=== PATIENT | female | born 2000 | race Caucasian/White ===

== ENCOUNTER 2021-08-20 13:38 | Inpatient (IN) ==
[2021-08-20] MEDS ORDERED: OXYTOCIN 30 UNITS/500 ML BAG IV PRN ×2 (13:48→17:11)
--- NOTE | 2021-08-20 13:51 | History & Physical Report ---
Date of Service August 20, 2021 Assessment & Plan (1) with 39 completed weeks gestation: (2) ROM (rupture of membranes), premature: Plan: admit with expectant mangement. epidural on demand. Pitocin if indicated. anticipate . Fetus reassuring. Admission and Anticipated Discharge Date Admission Date: August 20, 2021 History of Present Illness Chief Complaint: rom and contractions Primary Care Provider: Gay Benavides Patient is a 21yowf with iup at 39 4/7 weeks . Was in labor and delivery last night for contractions and rectal pressure and not in labor. contractions increased today and noted a pop and green fluid today. Also notes increased contractions. It just continues to leak out of her. Came in wheelchair with towels between legs and nursing notes she is grossly ruptured. labs--O+/ab-/ri/rprnr/hepb-/hiv-/gc/ct-/afp neg/ neg invitae/cf/sma neg/ gbs neg Allergies Allergy/AdvReac Type Severity Reaction Status Date / Time melatonin Allergy itchy, Verified 08/19/21 19:11 hard to breathe, leg swelling Home Medications Medication Instructions Recorded Confirmed Type prenat.vits,harshal,ddx-xcuj-vabii 1 tab PO DAILY 12/28/20 08/19/21 History acetaminophen 500 mg tablet 500 - 1,000 mg PO Q6H PRN 02/19/21 08/19/21 History (Tylenol Extra Strength) ondansetron HCl 4 mg tablet 4 mg PO Q6H PRN #20 tab 05/15/21 08/19/21 Rx (Zofran) Patient History Medical History (Updated 08/20/21 @ 13:55 by Yu Alcala MD, FACOG) Asthma Hx of migraines Pineal gland cyst Surgical History Hx of appendectomy Hx of cholecystectomy Family History Grandfather (Paternal) Cancer Father Heart disease Diabetes Grandmother (Paternal) Lung disease Aunt Kidney disease Mother Diabetes Social History (Updated 05/24/21 @ 16:09 by Nessa Carvalho RN) Smoking Status: Never smoker Hx Alcohol Use: No Hx Substance Use: No Preferred Language: Chinese Communication Ability: Effective Coal Gasification Technician Required: No Beliefs That Will Affect Care: None marital status: marital status details: Sharan (23) [phone] Current Living Situation: Spouse current occupational status: employed current occupation: nurses at at [employer] Feels Safe at Home: Yes Childhood Exposure to Second-Hand Smoke: Yes caffeine: Yes Dental Care, Regularly: No Seatbelt Use: always Sunscreen Use: Yes Do you think of yourself as: straight/heterosexual Sexual Activity: has been sexually active within the last 12 months Gender Identity: Female Assistive Devices: None OB History g1--current FITTER HELPER History noncontributory Physical Exam Constitutional: WD/WN, vitals as above Gastrointestinal (Abdomen): soft, gravid, nt Genitourinary: cx--/-2/mid/soft toco--q3-5min efm--category one Coding Level of Care Code None Diagnoses with 39 completed weeks gestation Z3A.39 ROM (rupture of membranes), premature O42.90
[2021-08-20 14:17] LABS: Hematocrit (blood only) 37.9 % (37-47); Mean Corpuscular Hemoglobin 28.4 pg (25-34); Mean Corpuscular Hgb Conc 34.3 g/dL (32-36); Mean Corpuscular Volume 82.8 fL (80-100); Mean Platelet Volume 11.2 fL (7.4-10.4); Platelet Count 220 K/uL (130-400); RDW Coefficient of Variation 14.2 % (11.5-14.5); Red Blood Count 4.58 M/uL (4.2-5.4); White Blood Count 11.59 K/uL (4.8-10.8)
[2021-08-20] MEDS: LACTATED RINGER'S 1,000 ML IV PRN ×3 (15:19→20:36)
[2021-08-20] MEDS ORDERED: ePHEDrine sulfate 50 MG/ML AMP ONE (16:19)
[2021-08-20] MEDS ORDERED: SODIUM CHLORIDE 0.9% INJ 10 ML VIAL ONE (16:19)
[2021-08-20] MEDS ORDERED: BUPIVACAINE 0.25% 30 ML VIAL ONE (16:19)
[2021-08-20] MEDS ORDERED: fentaNYL citrate 100 MCG/2 ML VIAL ONE (16:20)
[2021-08-20] MEDS ORDERED: fentaNYL 2MCG/ML ROPIVACAINE 1.25MG/ML 100 ML BAG EPI ONE (16:20)
[2021-08-20] MEDS ORDERED: ONDANSETRON INJ 2 MG/ML 2 ML VIAL IV PRN (17:22)
[2021-08-20] MEDS ORDERED: NALOXONE HCL 0.4 MG/1 ML VIAL/CARP IV PRN (17:22)
[2021-08-20] MEDS ORDERED: NALBUPHINE HCL INJ 10 MG/ML AMP IV PRN (17:22)
[2021-08-20] MEDS ORDERED: NALOXONE HCL 1 MG in SODIUM CHLORIDE 0.9% 1000ML 1,000 ML IV PRN (17:22)
[2021-08-20] MEDS ORDERED: fentaNYL 2MCG/ML ROPIVACAINE 1.25MG/ML 100 ML BAG EPI PRN (17:22)
[2021-08-20] MEDS ORDERED: ePHEDrine sulfate 50 MG/ML AMP IV PRN (17:22)
[2021-08-20] MEDS ORDERED: diphenhydrAMINE 50 MG/ML VIAL IV PRN (17:22)
--- NOTE | 2021-08-20 21:50 | Anesthesiology Consultation ---
Date of Service August 20, 2021 This is a late entry Assessment & Plan (1) Encounter for pre-operative examination: History Height/Weight Height: 5 ft 5 in Weight: 99.337 kg Allergies Allergy/AdvReac Type Severity Reaction Status Date / Time melatonin Allergy itchy, Verified 08/19/21 19:11 hard to breathe, leg swelling Medications Home Medications Medication Instructions Recorded Confirmed Last Taken prenat.vits,harshal,gjv-xuux-eyivf 1 tab PO DAILY 12/28/20 08/20/21 08/19/21 08:00 acetaminophen 500 mg tablet 500 - 1,000 mg PO Q6H PRN 02/19/21 08/20/21 08/18/21 08:00 (Tylenol Extra Strength) ondansetron HCl 4 mg tablet 4 mg PO Q6H PRN #20 tab 05/15/21 08/20/21 08/04/21 21:00 (Zofran) diphenhydramine HCl 25 mg capsule 25 mg PO HS PRN 08/20/21 08/20/21 08/19/21 21:00 (Benadryl) Active Medications Generic Name Dose Route Start Last Admin Trade Name Freq PRN Reason Stop Dose Admin Lactated Ringer's 1,000 mls @ 125 mls/hr 08/20/21 13:48 08/20/21 20:36 Lr IV 08/22/21 13:47 125 mls/hr .Q8H PRN Administration L&D Protocol Protocol Oxytocin 30 units in 500 mls @ 5 mls/hr 08/20/21 17:11 08/20/21 21:30 Pitocin IV 08/22/21 17:10 0.42 units/hr .Q24H PRN 7 mls/hr Labor Induction/Augmentation Titration Protocol 0.3 UNITS/HR Past Medical History Medical History (Updated 08/20/21 @ 21:50 by Ro Tapia MD) Asthma Hx of migraines Pineal gland cyst Past Family History Family History Grandfather (Paternal) Cancer Father Heart disease Diabetes Grandmother (Paternal) Lung disease Aunt Kidney disease Mother Diabetes Past Surgical History Surgical History Hx of appendectomy Hx of cholecystectomy Social History Smoking Status: Never smoker Do You Dip or Chew Tobacco: No Hx Alcohol Use: No Hx Substance Use: No substance use type: does not use Physical Exam Vital Signs Last Vital Signs Temp 37.2 C 08/20/21 21:00 Pulse 76 08/20/21 21:38 Resp 18 08/20/21 21:00 BP 123/75 08/20/21 21:33 Pulse Ox 96 08/20/21 21:38 Testing Laboratory Results 08/20/21 14:02
--- NOTE | 2021-08-20 22:43 | Labor Progress Brief Note ---
Date of Service August 20, 2021 Subjective comfortable, now sitting in high fowlers Assessment & Plan (1) ROM (rupture of membranes), premature: (2) with 39 completed weeks gestation: Plan: Will continue current management at this point. contractions are adequate. I have concerns about adequacy of the pelvis and narrow arch. May be having variable because of this or may be a cord somewhere. She is making nice progress. discussed that I am never able to tell if a baby will pass through a pelvis until we try but I wanted to let her know what I was thinking. She asks if we should just do a section now. Discussed would continue current management. Will pull back on pit to 6 as mvus at last check was 335. Fetus overall reassuring with good variability and scalp stim. Admission and Anticipated Discharge Date Admission Date: August 20, 2021 Physical Exam Physical Exam: cx--8/100/-1 toco--q2-3, pit at 8 efm--140s with mod variability, variables with some contractions, improved in the high sitting position. Results & Data ([facility]) Vital Signs (Past 12 Hours) Vital Signs Temp Pulse Pulse Resp BP BP Pulse Ox 08/20/21 22:33 115 H 164/75 H 98 08/20/21 22:28 83 98 08/20/21 22:23 98 H 97 08/20/21 22:18 98 H 130/83 99 08/20/21 22:13 73 96 08/20/21 22:08 76 96 08/20/21 22:03 82 97 08/20/21 22:01 71 127/77 08/20/21 22:00 18 08/20/21 21:58 92 H 98 08/20/21 21:53 88 98 08/20/21 21:48 64 96 08/20/21 21:43 75 96 08/20/21 21:38 76 96 08/20/21 21:33 85 123/75 98 08/20/21 21:30 18 08/20/21 21:28 86 96 08/20/21 21:23 73 96 08/20/21 21:18 70 120/72 96 08/20/21 21:13 89 97 08/20/21 21:08 89 98 08/20/21 21:03 67 96 08/20/21 21:00 37.2 C 18 08/20/21 20:58 74 97 08/20/21 20:53 70 98 08/20/21 20:48 70 112/67 99 08/20/21 20:43 79 99 08/20/21 20:38 89 98 08/20/21 20:33 76 111/59 L 99 08/20/21 20:30 18 08/20/21 20:28 97 H 98 08/20/21 20:23 77 98 08/20/21 20:18 73 108/56 L 98 08/20/21 20:13 71 98 08/20/21 20:08 73 98 08/20/21 20:04 76 131/76 08/20/21 20:03 87 98 08/20/21 20:00 18 08/20/21 19:58 74 96 08/20/21 19:53 71 97 08/20/21 19:48 63 130/67 97 08/20/21 19:43 69 97 08/20/21 19:38 65 96 08/20/21 19:33 68 133/68 98 08/20/21 19:30 18 08/20/21 19:28 74 98 08/20/21 19:23 70 98 08/20/21 19:19 70 130/67 08/20/21 19:18 86 98 08/20/21 19:15 37.4 C 18 08/20/21 19:13 90 98 08/20/21 19:08 78 98 08/20/21 19:06 37.4 C 18 08/20/21 19:03 88 135/73 97 08/20/21 18:58 90 98 08/20/21 18:53 82 98 08/20/21 18:49 74 133/75 08/20/21 18:48 76 98 08/20/21 18:43 86 98 08/20/21 18:38 70 97 08/20/21 18:33 37.6 C H 87 16 139/84 97 08/20/21 18:19 80 97 08/20/21 18:18 81 133/80 08/20/21 18:14 71 95 08/20/21 18:09 72 95 08/20/21 18:04 65 130/70 95 08/20/21 17:59 68 94 08/20/21 17:54 69 95 08/20/21 17:49 86 99 08/20/21 17:48 88 141/94 H 08/20/21 17:44 72 98 08/20/21 17:39 67 96 08/20/21 17:35 68 94 08/20/21 17:34 69 95 08/20/21 17:33 37.5 C 75 16 140/62 08/20/21 17:29 81 97 08/20/21 17:24 88 96 08/20/21 17:19 85 97 08/20/21 17:18 95 H 154/72 H 08/20/21 17:16 90 148/68 H 08/20/21 17:14 96 H 190/90 H 97 08/20/21 17:12 77 130/68 08/20/21 17:10 98 H 130/68 08/20/21 17:09 84 97 08/20/21 17:08 96 H 132/72 08/20/21 17:05 97 H 143/81 H 08/20/21 17:04 98 H 98 08/20/21 17:01 82 129/68 08/20/21 16:59 87 97 08/20/21 16:54 93 H 98 08/20/21 16:49 100 H 98 08/20/21 16:44 86 98 08/20/21 16:39 113 H 98 08/20/21 16:34 70 97 08/20/21 16:33 36.9 C 68 20 124/73 08/20/21 14:45 36.8 C 20 08/20/21 14:04 36.8 C 100 H 20 136/88 Coding Level of Care Code None Diagnoses ROM (rupture of membranes), premature O42.90 with 39 completed weeks gestation Z3A.39
--- NOTE | 2021-08-21 01:30 | Delivery Summary ---
Vaginal Delivery Summary Date of Service August 21, 2021 Vaginal Delivery Summary (see operative note for surgical repair) Pre-operative Diagnosis: at 39 5/7 weeks srom active labor thin meconium Post-operative Diagnosis: same extensive vaginal laceration. Procedure: epidural pitocin augmentation fse/iupc extensive vaginal laceration EBL: 450cc Anesthesia: epidural Procedure: The patient presented to labor and delivery with srom and active labor. She underwent an epidural and then pitocin augmentation. fse and iupc placed to monitor labor. When iupc placed at 6cm, mvus were >200. The fht remained fairly reassuring throughout but the fetus did have periods of variables with contractions. Were able to get through these with position change. The patient did eventually become c/c/+2 station. The heart tones then were in the 90s and I was concerned that the baby would not tolerate pushing. However, fht recovered to 120s and we decided on a trial of pushing. If did not tolerate, planned to move to c/s. Fortunately she pushed very well. The patient pushed for about three contractions to deliver a viable female infant in hunter position. The nose and mouth were bulb suctioned on the perineum and the rest of the infant was then delivered without difficulty. The baby was vigorous. The nose and mouth were again bulb suctioned and the was placed in the maternal abdomen for drying and attention. Cord was clamped and cut at one minute of life. Cord blood and segment obtained. Placenta delivered spontaneous, intact with a three vessel cord. Cervix/sulci/rectum/perineum were intact. Hemostasis obtained with dilute pitocin and fundal massage. Apgars were 8/9. Unfortunately there were extensive vaginal lacerations. I attempted to repair these in the labor room. Her epidural worked very well, but because of lighting and lack of retractors, I was unable to adequately repair. So she will go to the operating room for this repair. I explained this to the patient and fob and she expresses understanding and gives me verbal permission to proceed. There are bilateral sulcal tears, the left almost to the vaginal fornix. The introitus was from the anterior vagina anterior to posterior [facility] Vaginal Delivery Charge Delivery Type Details: (see operative note for surgical repair)
[2021-08-21] MEDS ORDERED: LIDOCAINE 2%/EPINEPHRINE 1:200,000 20 ML SDV ONE (02:44)
[2021-08-21] MEDS ORDERED: ceFAZolin 2000MG 2,000 MG/15 ML SYR IV ONE (02:45)
--- NOTE | 2021-08-21 03:00 | Anesthesiology Consultation ---
Date of Service August 21, 2021 Assessment & Plan Chart Review Chart Review: Acceptable Risk for Surgery Consults Requested none History Surgery Operation Date: 08/21/21 03:00 Proposed Procedures p Vaginal Hysterectomy - Yu Alcala MD, FACOG Height/Weight Height: 5 ft 5 in Weight: 99.337 kg Allergies Allergy/AdvReac Type Severity Reaction Status Date / Time melatonin Allergy itchy, Verified 08/19/21 19:11 hard to breathe, leg swelling Medications Home Medications Medication Instructions Recorded Confirmed Last Taken prenat.vits,harshal,sev-zdzy-okfjc 1 tab PO DAILY 12/28/20 08/20/21 08/19/21 08:00 acetaminophen 500 mg tablet 500 - 1,000 mg PO Q6H PRN 02/19/21 08/20/21 08/18/21 08:00 (Tylenol Extra Strength) ondansetron HCl 4 mg tablet 4 mg PO Q6H PRN #20 tab 05/15/21 08/20/21 08/04/21 21:00 (Zofran) diphenhydramine HCl 25 mg capsule 25 mg PO HS PRN 08/20/21 08/20/21 08/19/21 21:00 (Benadryl) Active Medications Generic Name Dose Route Start Last Admin Trade Name Freq PRN Reason Stop Dose Admin Lactated Ringer's 1,000 mls @ 125 mls/hr 08/20/21 13:48 08/20/21 20:36 Lr IV 08/22/21 13:47 125 mls/hr .Q8H PRN Administration L&D Protocol Protocol Oxytocin 30 units in 500 mls @ 8 mls/hr 08/20/21 17:11 08/21/21 01:20 Pitocin IV 08/22/21 17:10 Infused .Q24H PRN Titration Labor Induction/Augmentation Protocol 0.48 UNITS/HR Ropivacaine 100 ml 08/20/21 17:22 08/21/21 01:21 Fentanyl 2mcg/Ml Ropivacaine 1.25mg/Ml 100 Ml Bag EPI 08/21/21 17:21 10 ml PRN PRN Administration Pain R/T Labor Protocol NPO Date Last Intake of Fluids: 08/21/21 Time Last Intake of Fluids: 12:00 Last Intake of Fluids Comment: Water Date Last Intake of Solids: 08/20/21 Time Last Intake of Solids: 10:00 Past Medical History Medical History (Updated 08/20/21 @ 21:50 by Ro Tapia MD) Asthma Hx of migraines Pineal gland cyst Past Family History Family History Grandfather (Paternal) Cancer Father Heart disease Diabetes Grandmother (Paternal) Lung disease Aunt Kidney disease Mother Diabetes Past Surgical History Surgical History Hx of appendectomy Hx of cholecystectomy Social History Smoking Status: Never smoker Do You Dip or Chew Tobacco: No Hx Alcohol Use: No Hx Substance Use: No substance use type: does not use Physical Exam Vital Signs Last Vital Signs Temp 36.9 C 08/21/21 00:54 Pulse 92 H 08/21/21 02:33 Resp 18 08/21/21 00:30 BP 125/58 L 08/21/21 02:30 Pulse Ox 96 08/21/21 02:33 Testing Laboratory Results 08/20/21 14:02
[2021-08-21] MEDS ORDERED: ePHEDrine sulfate 50 MG/ML AMP IV PRN (03:01)
[2021-08-21] MEDS ORDERED: ONDANSETRON INJ 2 MG/ML 2 ML VIAL IV PRN (03:01)
[2021-08-21] MEDS ORDERED: fentaNYL citrate 100 MCG/2 ML VIAL IV PRN (03:01)
[2021-08-21] MEDS ORDERED: ATROPINE SULFATE 0.1 MG/ML 10ML SYR IV PRN (03:01)
[2021-08-21] MEDS ORDERED: HYDROmorphone INJ 2 MG/ML SYR/VIAL IV PRN (03:01)
[2021-08-21] MEDS ORDERED: oxyCODONE/ACETAMINOPHEN 5mg/325mg TAB PO PRN (03:36)
--- NOTE | 2021-08-21 03:40 | Operative Report ---
PG Post Operative Report Pre & Post Diagnosis Operation Date: 08/21/21 03:00 Pre-Op Diagnosis: Vaginal Lacerations Post-Op Diagnosis: Vaginal Lacerations I identified the patient and participated in the time-out.: Yes Procedure Operation Date: 08/21/21 03:00 Actual Procedures p Repair of left vaginal succul laceration and right Labial Vaginal Laceration( Not Applicable) - Yu Alcala MD, FACOG Surgeon Yu Alcala MD, FACOG Larry Operator Corby Sanchez, nanotechnician Estimated Blood Loss 100 Findings Consistent with Post-Op Diagnosis left sulcal laceration not fully repaired, right labial laceration Fluids 200cc Specimens none Drains none Anesthesia Type L&D Only Epidural Exists Complications none Disposition Accompanied Patient To Recovery: Yes Disposition: L&D Indications 21 yowf s/p vaginal delivery with bilateral sulcal lacerations and separation of the vagina from the perineum. Unable to repair in labor and delivery Description of Procedure see note I attest to the content of the Intraoperative Record and any orders documented therein. Any exceptions are noted below.
--- NOTE | 2021-08-21 03:55 | Anesthesiology Progress Note ---
Date of Service August 21, 2021 Anesthesia Post Procedure Vital Signs Vital Signs: Temp Pulse Pulse Resp BP BP Pulse Ox 08/21/21 03:51 112 H 94 08/21/21 03:50 106 H 118/78 08/21/21 03:49 106 H 98 08/21/21 02:33 92 H 96 08/21/21 02:32 100 H 89 L 08/21/21 02:30 99 H 125/58 L 08/21/21 02:28 90 95 08/21/21 02:23 94 H 95 08/21/21 02:18 99 H 97 08/21/21 02:13 94 H 93 08/21/21 02:08 96 H 97 08/21/21 02:03 103 H 97 08/21/21 02:00 121 H 108/83 08/21/21 01:58 110 H 94 08/21/21 01:53 105 H 97 08/21/21 01:48 110 H 98 08/21/21 01:45 92 H 118/79 08/21/21 01:43 95 H 97 08/21/21 01:38 94 H 97 08/21/21 01:33 96 H 97 08/21/21 01:30 99 H 116/75 08/21/21 01:28 104 H 98 08/21/21 01:23 114 H 98 08/21/21 01:18 110 H 99 08/21/21 01:15 89 122/73 08/21/21 01:13 101 H 97 08/21/21 01:08 87 97 08/21/21 01:03 87 97 08/21/21 01:02 88 118/69 08/21/21 00:58 94 H 96 08/21/21 00:54 36.9 C 08/21/21 00:53 88 97 08/21/21 00:48 116 H 99 08/21/21 00:47 139 H 127/72 08/21/21 00:43 97 H 100 08/21/21 00:38 113 H 97 08/21/21 00:33 98 H 119/67 96 08/21/21 00:30 18 08/21/21 00:28 113 H 96 08/21/21 00:23 94 H 97 08/21/21 00:18 98 H 96 08/21/21 00:17 112 H 107/67 08/21/21 00:13 115 H 97 08/21/21 00:08 85 94 08/21/21 00:03 98 H 113/66 96 08/21/21 00:01 18 08/20/21 23:58 101 H 96 08/20/21 23:53 96 H 96 08/20/21 23:48 99 H 97 08/20/21 23:47 101 H 120/73 08/20/21 23:43 91 H 96 08/20/21 23:38 85 96 08/20/21 23:33 93 H 97 08/20/21 23:32 75 118/64 08/20/21 23:30 18 08/20/21 23:28 97 H 96 08/20/21 23:23 104 H 97 08/20/21 23:20 37.7 C H 08/20/21 23:18 107 H 97 08/20/21 23:17 87 124/70 08/20/21 23:13 110 H 96 08/20/21 23:08 108 H 97 08/20/21 23:03 89 124/65 97 08/20/21 23:00 18 08/20/21 22:58 89 97 08/20/21 22:53 90 97 08/20/21 22:48 104 H 97 08/20/21 22:47 98 H 121/74 08/20/21 22:43 99 H 97 08/20/21 22:38 88 98 08/20/21 22:33 115 H 164/75 H 98 08/20/21 22:30 18 08/20/21 22:28 83 98 08/20/21 22:23 98 H 97 08/20/21 22:18 98 H 130/83 99 08/20/21 22:13 73 96 08/20/21 22:08 76 96 08/20/21 22:03 82 97 08/20/21 22:01 71 127/77 08/20/21 22:00 18 08/20/21 21:58 92 H 98 08/20/21 21:53 88 98 08/20/21 21:48 64 96 08/20/21 21:43 75 96 08/20/21 21:38 76 96 08/20/21 21:33 85 123/75 98 08/20/21 21:30 18 09/26/21 21:28 86 96 08/20/21 21:23 73 96 08/20/21 21:18 70 120/72 96 08/20/21 21:13 89 97 08/20/21 21:08 89 98 08/20/21 21:03 67 96 08/20/21 21:00 37.2 C 18 08/20/21 20:58 74 97 08/20/21 20:53 70 98 08/20/21 20:48 70 112/67 99 08/20/21 20:43 79 99 08/20/21 20:38 89 98 08/20/21 20:33 76 111/59 L 99 08/20/21 20:30 18 08/20/21 20:28 97 H 98 08/20/21 20:23 77 98 08/20/21 20:18 73 108/56 L 98 08/20/21 20:13 71 98 08/20/21 20:08 73 98 08/20/21 20:04 76 131/76 08/20/21 20:03 87 98 08/20/21 20:00 18 08/20/21 19:58 74 96 08/20/21 19:53 71 97 08/20/21 19:48 63 130/67 97 08/20/21 19:43 69 97 08/20/21 19:38 65 96 08/20/21 19:33 68 133/68 98 08/20/21 19:30 18 08/20/21 19:28 74 98 08/20/21 19:23 70 98 08/20/21 19:19 70 130/67 08/20/21 19:18 86 98 08/20/21 19:15 37.4 C 18 08/20/21 19:13 90 98 08/20/21 19:08 78 98 08/20/21 19:06 37.4 C 18 08/20/21 19:03 88 135/73 97 08/20/21 18:58 90 98 08/20/21 18:53 82 98 08/20/21 18:49 74 133/75 08/20/21 18:48 76 98 08/20/21 18:43 86 98 08/20/21 18:38 70 97 08/20/21 18:33 37.6 C H 87 16 139/84 97 08/20/21 18:19 80 97 08/20/21 18:18 81 133/80 08/20/21 18:14 71 95 08/20/21 18:09 72 95 08/20/21 18:04 65 130/70 95 08/20/21 17:59 68 94 08/20/21 17:54 69 95 08/20/21 17:49 86 99 08/20/21 17:48 88 141/94 H 08/20/21 17:44 72 98 08/20/21 17:39 67 96 08/20/21 17:35 68 94 08/20/21 17:34 69 95 08/20/21 17:33 37.5 C 75 16 140/62 08/20/21 17:29 81 97 08/20/21 17:24 88 96 08/20/21 17:19 85 97 08/20/21 17:18 95 H 154/72 H 08/20/21 17:16 90 148/68 H 08/20/21 17:14 96 H 190/90 H 97 08/20/21 17:12 77 130/68 08/20/21 17:10 98 H 130/68 08/20/21 17:09 84 97 08/20/21 17:08 96 H 132/72 08/20/21 17:05 97 H 143/81 H 08/20/21 17:04 98 H 98 08/20/21 17:01 82 129/68 08/20/21 16:59 87 97 08/20/21 16:54 93 H 98 08/20/21 16:49 100 H 98 08/20/21 16:44 86 98 08/20/21 16:39 113 H 98 08/20/21 16:34 70 97 08/20/21 16:33 36.9 C 68 20 124/73 08/20/21 14:45 36.8 C 20 08/20/21 14:04 36.8 C 100 H 20 136/88 Pain Intensity Abdomen: Pain Intensity: 0 Transfer of Care Handoff Completed per policy Notes Mental Status: alert / awake / arousable and participated in evaluation Patient Amnestic to Procedure: Yes Nausea / Vomiting: adequately controlled Pain: adequately controlled Airway Patency, RR, SpO2: stable & adequate BP & HR: stable & adequate Hydration State: stable & adequate Anesthetic Complications: no major complications apparent
[2021-08-21] MEDS: ACETAMINOPHEN 325 MG TAB PO PRN ×2 (04:57→13:56)
[2021-08-21] MEDS ORDERED: BENZOCAINE 20% AER SPR 82.5 GM CAN EXT PRN (06:21)
[2021-08-21] MEDS ORDERED: bisacodyL 5 MG TABEC PO PRN (06:44)
--- NOTE | 2021-08-21 06:50 | Operative Report (OR) ---
PREOPERATIVE DIAGNOSIS: 1. Status post vaginal delivery. 2. Extensive vaginal lacerations and separation of the vagina from the perineal body. POSTOPERATIVE DIAGNOSES: 1. Status post vaginal delivery. 2. Extensive vaginal lacerations and separation of the vagina from the perineal body. PROCEDURE: Exam under anesthesia with repair of left sulcal laceration and right labial laceration. SURGEON: Yu Alcala MD ELECTRICAL SYSTEM SPECIALIST: Adri Montesinos CST ANESTHESIA: Indwelling labor epidural. ESTIMATED BLOOD LOSS: 100 mL. INDICATIONS: Carolyne is a 21-year-old white female who presented to labor and delivery ruptured and in active labor. She progressed in labor with Pitocin augmentation and pushed for approximately four contractions to deliver a viable infant. On evaluation of the perineum and vagina, there were bilateral sulcal tears. There was separation of the posterior vagina from the perineal body and right labial laceration. I was unable to adequately repair these lacerations because of lack of lighting and instruments, so we took her to the OR for this. FINDINGS: Left sulcal laceration that was almost to the vaginal fornix and a right labial laceration. The right sulcal laceration had been appropriately sutured and the posterior vagina had been sutured to the perineal body. COMPLICATIONS: None. DRAINS: None. DISPOSITION: To recovery room in stable condition. DESCRIPTION OF PROCEDURE: The patient was taken to the operating room where she was identified verbally and by bracelet. She was placed in the dorsal supine position in candy cane stirrups. She was prepped and draped in a normal sterile fashion. A timeout was held, identifying correct patient, procedure, positioning, and equipment. She received 1 gram of Ancef preoperatively. A Hogan catheter had been placed previously. I was able to isolate the apex of the left sulcal laceration and this was repaired with 3-0 Vicryl in a running locked fashion to the introitus. The posterior vagina had been sutured appropriately to the perineal body and the right sulcal laceration had been repaired appropriately and was intact. A right labial laceration was identified going almost all the way up to the labia, which was repaired with several interrupted sutures of 4-0 Vicryl. At the end of the procedure, hemostasis was noted to be good. All sponge, lap and needle counts were correct x2. The patient tolerated the procedure well and was taken to recovery room in stable condition. Job ID: [id number] [facility]
[2021-08-21] MEDS: DOCUSATE SODIUM 100 MG CAP PO SCH ×2 (08:54→20:21)
[2021-08-21] MEDS: PRENATAL VITAMIN 1 TAB PO SCH (08:54)
[2021-08-21] MEDS ORDERED: IBUPROFEN 600 MG TAB PO ONE (10:02)
[2021-08-21] MEDS ORDERED: IBUPROFEN 600 MG TAB PO PRN (10:16)
[2021-08-21] MEDS: ceFAZolin 1000MG 1,000 MG/7.5 ML SYR IV SCH ×2 (12:18→20:21)
[2021-08-22] MEDS: ceFAZolin 1000MG 1,000 MG/7.5 ML SYR IV SCH (03:54)
--- NOTE | 2021-08-22 06:42 | Obstetrical Progress Note ---
Date of Service August 22, 2021 Assessment & Plan (1) Encounter for care and examination after delivery: doing well, desires d/c home. instructions reviewed. f/u 6 wk pp check. bottle, rh pos, ri. hgb pending. abx can be d/c'd Day #:: 1 Subjective Ambulation: ambulating normally Voiding: no voiding problems Diet Tolerance:: regular diet Lochia:: Small Feeding Type:: bottle feeding doing well. bottle feeding. denies pain issues. Constitutional: + as per Subjective / HPI Physical Exam Constitutional WD/WN, vitals as above Respiratory normal respiratory effort, lungs clear to auscultation Cardiovascular Rate/Rhythm: regular rate and regular rhythm Gastrointestinal (Abdomen) Percussion/Palpation: abdomen soft; abdomen nontender FF 2 down Musculoskeletal NT calves Neurologic grossly normal Psychiatric A+Ox3, euthymic affect Results & Data ([facility]) Vital Signs (Past 12 Hours) Vital Signs Temp Pulse Resp BP Pulse Ox 08/22/21 04:00 98.1 F 87 18 111/73 98 08/21/21 23:00 98.2 F 78 18 116/78 97 08/21/21 20:15 98.4 F 89 18 112/75 97
[2021-08-22] MEDS: PRENATAL VITAMIN 1 TAB PO SCH (07:55)
[2021-08-22] MEDS: DOCUSATE SODIUM 100 MG CAP PO SCH (07:55)
[2021-08-22 08:06] LABS: Hematocrit (blood only) 30.2 % (37-47); Hemoglobin 9.7 g/dL (12.0-16.0)
--- NOTE | 2021-08-24 10:50 | Discharge Summary (DS) ---
DATE OF ADMISSION: 08/20/2021 DATE OF DISCHARGE: 08/22/2021 ADMIT DIAGNOSES: 1. Intrauterine at 39 and 4/7 weeks. 2. Rupture of membranes. 3. Active labor. DISCHARGE DIAGNOSES: 1. Intrauterine at 39 and 4/7 weeks. 2. Rupture of membranes. 3. Active labor. 4. Status post vaginal delivery. 5. Status post bilateral sulcal lacerations requiring repair in the operating room. PROCEDURES: 1. Normal spontaneous vaginal delivery. 2. Repair of extensive vaginal laceration. 3. FSE and IUPC and Pitocin augmentation. HISTORY OF PRESENT ILLNESS: The patient is a 21-year-old white female, 1, para 0, with an intrauterine at 39 and 4/7 weeks. She was in labor and delivery the night before presentation with contractions and rectal pressure, but was not in labor. Her contractions were increased on the day of admission and she noted a pop and green fluid today. She also noted contractions and the fluid continued to leak out of her. She came into the hospital in a wheelchair with a towel between her legs and nursing notes that she is grossly ruptured. She is 3, 90, -2, mid and soft. She is bianka every 3-5 minutes. The fetus was category 1. For the rest of the patient's detailed history and physical, please see her dictated history and physical. ASSESSMENT: The patient was admitted with expectant management. HOSPITAL COURSE: The patient required Pitocin augmentation. The fetus remained in category 1-2 strip, category 2, was reassuring with good variability but variables. The patient progressed to complete, complete and +2 to 3 station. She did require an FSE and IUPC placement to monitor labor. Her MVUs with IUPC placement were greater than 200. heart tones remained fairly reassuring throughout, but the fetus did have periods of variables with contractions. These were responsive to position change. Once the patient was found to be complete, complete and +2 station, heart tones were found to be in the 90s and I was concerned that the baby would not tolerate pushing; however, we did decide on a trial of pushing and when she did that, she pushed very well and after 3 contractions, was able to deliver a viable female infant in CANDICE presentation. Cervix, sulci, rectum and perineum were intact. Unfortunately, there were bilateral sulcal lacerations, left much deeper almost to the vaginal fornix than the right and the posterior edge of the vaginal wall had anterior- posteriorly from the perineal body. I attempted to repair these in the labor and delivery room as she had an excellent epidural. Unfortunately, because of lack of appropriate lighting and retracting ability, I was unable to satisfactorily repair. Therefore, I consented the patient to move to the operating room, so we could do this with better leg positioning, lighting and retractors. We were able to go to the operating room where I did repair bilateral sulcal lacerations and reapproximated the posterior vaginal wall to the perineal body. Total blood loss for the procedure including the delivery was probably 600 mL and she tolerated that well. This was done under her labor and delivery epidural. The patient's postoperative course was uncomplicated. She tolerated a regular diet, ambulated without difficulty, voided without difficulty and had her pain well controlled. She did receive 24 hours of Ancef because of excessive manipulation of the vagina for repair. Discharge H and H was 9.7 and 30.2. She will return in 6 weeks for postoperative care. Job ID: [id number] [facility]
== END 2021-08-22 13:15 | disposition home or self-care (01) | DRG 807 ==
LOC: 4S2 13:38 → 4S1 16:18 → 4N 08-21 06:15

== ENCOUNTER 2024-06-06 09:39 | Inpatient (IN) ==
--- NOTE | 2024-06-06 10:11 | Emergency Department Note ---
ED Provider Note History of Present Illness Chief Complaint: Vomiting Stated Complaint: FEVER, VOMITING, VOMITING BLOOD, WEAK, KIDNEY PAIN Time Seen by Provider: 06/06/24 09:56 24-year-old female who presents to the emergency department with several complaints, including weakness, fever, vomiting, increased urinary frequency, urgency and blood in her urine. Patient also reports right flank pain as well. Symptoms started about 4 days ago, and have progressively worsened. The patient does report a history of recurrent UTIs during , and is currently 30 weeks gestation. Patient denies history of kidney stones. The patient denies any pain radiating into the left abdomen or chest. She denies any shortness of breath. The patient currently rates her discomfort a 6 out of 10. Home Medications Medication Instructions Recorded Confirmed Type vit no.95-ferrous 1 tab PO DAILY 08/01/23 06/06/24 History fumarate 28 mg-folic acid 800 mcg tablet () nitrofurantoin 100 mg PO BID 7 days #14 caps 06/03/24 06/06/24 Rx monohydrate/macrocrystals 100 mg capsule (Macrobid) acetaminophen 500 mg tablet 500 mg PO Q6H PRN PAIN/FEVER 06/06/24 06/06/24 History Allergies Allergy/AdvReac Type Severity Reaction Status Date / Time melatonin Allergy Hives Verified 06/06/24 12:09 Past Med/Surg History Problem List (Updated 06/06/24 @ 15:10 by Luke Estrada) Acute hyponatremia (Acute) GERD (gastroesophageal reflux disease) Third trimester Sepsis Second trimester (Acute) Pyelonephritis (Acute) Palpitations Encounter for anatomic survey Supervision of normal intrauterine in multigravida Oral contraceptive pill surveillance Seizure disorder Depression Asthma Diarrhea Migraines Medical History depression Pineal gland cyst Hx of migraines Surgical History S/P wisdom tooth extraction Hx of tonsillectomy Hx of cholecystectomy Hx of appendectomy Family History Grandfather (Paternal) Cancer Father Heart disease Diabetes Grandmother (Paternal) Lung disease Aunt Kidney disease Mother Diabetes Social History Smoking Status: Never smoker Second Hand Exposure: No; Do You Dip or Chew Tobacco: No; Hx Alcohol Use: No Hx Substance Use: No Preferred Language: Dominican Communication Ability: Effective Painter Foreman Required: No Beliefs That Will Affect Care: None marital status: marital status details: Sharan (26) [phone] Current Living Situation: Spouse Current Living Situation Comment: Lives with , daughter, no pets current occupational status: employed current occupation: Nurse at [employer] Feels Safe at Home: Yes Safety Concerns: Feels Safe At This Time Childhood Exposure to Second-Hand Smoke: Yes Diet: regular caffeine: Yes Dental Care, Regularly: No Seatbelt Use: always Sunscreen Use: Yes Do you think of yourself as: straight/heterosexual Sexual Activity: has been sexually active within the last 12 months Gender Identity: Female Assistive Devices: None Physical Exam Vital Signs Vital Signs - 24 hr 06/06/24 09:47 06/06/24 11:40 Temperature 37.5 C Temperature Source Oral Pulse Rate 130 H Pulse Rate [Right Finger] 98 H Respiratory Rate 26 H 16 Respiratory Effort / Characteristics Non-Labored Spontaneous Respiratory Depth Normal Blood Pressure 103/70 Blood Pressure [Right Arm] 108/64 Blood Pressure Mean 81 Blood Pressure Mean [Right Arm] 78 Blood Pressure Position Sitting Pulse Oximetry 98 95 Oxygen Delivery Method Room Air Room Air Sepsis Recent Fever Within 48 Hours Yes Sepsis New/Unexplained Change in Mental Status Yes Sepsis Action Taken by Nursing No Action Required CONSTITUTIONAL: Healthy and well nourished. Alert and oriented X 3. GCS 15. Patient appears in moderate discomfort. HEENT: Mucous membranes are dry. No scleral icterus or conjunctival injection. RESPIRATORY: Clear to auscultation bilaterally with no wheezing, crackles, rhonchi or stridor. CARDIOVASCULAR: Regular rate and rhythm with no murmurs, rubs or gallops. GASTROINTESTINAL: Bowel sounds present in all quadrants. Abdomen is soft and nontender to palpation. Fundal height is appropriate for gestational age. Positive right CVA tenderness. No McBurney's point tenderness appreciated. MUSCULOSKELETAL: No tenderness to palpation through the lower back or lumbar paraspinous muscles. INTEGUMENTARY: No rash or other significant dermatologic conditions noted. HEMATOLOGIC: No ecchymosis or petechiae. PSYCHIATRIC: Flat affect. NEUROLOGIC: No focal neurologic deficits noted. Course Course Patient history and physical exam were performed. Nurses notes were reviewed. Vital signs are reviewed, showing a tachycardia and oral temperature of 37.5 C. The patient is not hypotensive or hypoxic. IV access was established, and labs were drawn. The patient was hydrated with a liter normal saline, and administered IV Tylenol and Zofran for pain and nausea. Review of labs shows a moderate leukocytosis with a white count of 14.79 with neutrophilic shift and no bandemia. CMP shows a mild hyponatremia with normal creatinine. Coag studies, LFTs and lipase were normal. Urinalysis is consistent with infection. Retroperitoneal ultrasound does not show evidence for hydronephrosis or other obstructing stone. I did order for Rocephin 2 g IV infusion. Upon reevaluation, the patient reports that she still did not feel well. At this point, the case was discussed with Dr. Zambrano, ED attending physician, who recommended discussing the case further with the hospitalist service for possible admission/observation status. I discussed the case as well with our Sticker [facility], and subsequently discussed the case further with Dr. Salter, [facility] Hospitalist, who will evaluate the patient. Please see his dictation for further treatment and final disposition. Administered Medications Discontinued Medications Sodium Chloride (Nss) 1,000 mls @ 999 mls/hr IV .Q1H1M STA Stop: 06/06/24 11:05 Last Infusion: 06/06/24 11:25 Dose: Infused Documented By: Admin: 06/06/24 10:22 Dose: 999 mls/hr Documented By: PROSPER Acetaminophen (Ofirmev) 1,000 mg in 100 mls @ 400 mls/hr IV NOW STA Stop: 06/06/24 10:19 Last Infusion: 06/06/24 10:54 Dose: Infused Documented By: Admin: 06/06/24 10:22 Dose: 400 mls/hr Documented By: PROSPER Ceftriaxone Sodium (Rocephin) 2,000 mg in 50 mls @ 100 mls/hr IV NOW STA Stop: 06/06/24 11:27 Last Infusion: 06/06/24 11:37 Dose: Infused Documented By: Admin: 06/06/24 11:06 Dose: 100 mls/hr Documented By: PROSPER Lactated Ringer's (Lr) 1,000 mls @ 999 mls/hr IV .Q1H1M ONE Stop: 06/06/24 13:47 Last Infusion: 06/06/24 14:50 Dose: Infused Documented By: Admin: 06/06/24 13:32 Dose: 999 mls/hr Documented By: PROSPER Pantoprazole Sodium 40 mg/ (Syringe) 10 mls @ 5 mls/min IV ONE ONE Stop: 06/06/24 13:31 Last Admin: 06/06/24 13:41 Dose: 5 mls/min Documented By: SHADE Ondansetron HCl (Ondansetron Inj 2 Mg/Ml 2 Ml Vial) 4 mg IV NOW STA Stop: 06/06/24 10:06 Last Admin: 06/06/24 10:22 Dose: 4 mg Documented By: PROSPER Medical Decision Making Medical Records Attestation: I reviewed the patient's medical records. Home Medications was personally reviewed by me Laboratory Data Attestation: I reviewed the patient's lab results. 06/06/24 10:24 06/06/24 10:24 Lab Results 06/06/24 Range/Units 10:24 WBC 14.79 H (4.8-10.8) K/ul RBC 4.08 L (4.20-5.40) M/uL Hgb 11.5 L (12.0-16.0) g/dl Hct 34.1 L (37.0-47.0) % MCV 83.6 (80.0-100.0) fL MCH 28.2 (25.0-34.0) pg MCHC 33.7 (32.0-36.0) g/dL RDW Std Deviation 41.8 (36.4-46.3) fL RDW Coeff of [place] 13.6 (11.5-14.5) % Plt Count 221 (130-400) K/uL MPV 10.4 (9.4-12.4) fL Immature Gran % (Auto) 0.7 % Neut % (Auto) 86.3 % Lymph % (Auto) 5.1 % [place] % (Auto) 7.6 % Eos % (Auto) 0.2 % Baso % (Auto) 0.1 % Neut # (Auto) 12.78 H (1.40-6.50) K/uL Lymph # (Auto) 0.75 L (1.20-3.40) K/uL [place] # (Auto) 1.12 H (0.11-0.59) K/uL Eos # (Auto) 0.03 (0.00-0.50) K/uL Baso # (Auto) 0.01 (0.00-0.20) K/uL Immature Gran # (Auto) 0.10 (0.01-0.20) K/uL PT 10.9 (9.0-12.0) Seconds INR 1.0 (0.9-1.1) Sodium 133 L (136-145) mmol/L Potassium 3.5 (3.5-5.1) mmol/L Chloride 102 (98-107) mmol/L Carbon Dioxide 23 (21-32) mmol/L Anion Gap 8 (3-11) BUN 5 L (6-23) mg/dl Creatinine 0.57 L (0.6-1.2) mg/dl Est Cr Clr Drug Dosing 172.7 ml/min Est GFR ( Amer) 149.3 ml/min Est GFR (Non-Af Amer) 128.8 ml/min BUN/Creatinine Ratio 8.8 L (10-20) Glucose 104 H (70-99(Fasting)) mg/dl Calcium 8.3 L (8.6-10.3) mg/dl Total Bilirubin 0.6 (0.2-1.0) mg/dl AST 11 L (13-39) U/L ALT 8 (7-52) U/L Alkaline Phosphatase 62 (34-104) U/L Total Protein 6.9 (6.0-8.3) gm/dl Albumin 3.4 (3.4-5.0) gm/dl Globulin 3.5 (2.5-4.0) gm/dl Albumin/Globulin Ratio 1.0 (0.9-2) Lipase 50 (11-82) U/L Urine Color Dark Yellow Urine Appearance Turbid A (Clear) Urine pH 6.0 (4.5-7.5) Ur Specific [place] 1.018 (1.000-1.030) Urine Protein 2+ H (Negative) Urine Glucose (UA) Negative (Negative) Urine Ketones 3+ H (Negative) Urine Blood Negative (Negative) Urine Nitrite Negative (Negative) Urine Bilirubin 1+ H (Negative) Urine Urobilinogen Negative (Negative) Ur Leukocyte Esterase 2+ H (Negative) Urine WBC (Auto) >50 H (0-5) /hpf Urine RBC (Auto) 6-10 H (0-2) /hpf U Hyaline Cast (Auto) 6-10 H (0-2) /lpf U Epithel Cells (Auto) >20 H (0-2) /hpf Urine Bacteria (Auto) 3+ H (None Seen) Imaging Data Attestation: I personally reviewed and interpreted this imaging study as follows: My Impression: My interpretation of a retroperitoneal ultrasound does not show any obvious hydronephrosis or obvious renal or ureteral calculi. Radiologist report was also reviewed with concurrence. Radiologist's Impression: Renal Ultrasound 06/06/24 10:05 ULTRASOUND KIDNEYS AND BLADDER CLINICAL HISTORY: Right flank pain. . Urinary tract infection. COMPARISON STUDY: No prior TECHNIQUE: Real-time, grayscale, and color flow sonography of the kidneys and bladder is performed. Images are reviewed in the transverse and longitudinal planes. FINDINGS: Kidneys: The kidneys are normal in size and echotexture. The right kidney measures 12.6 cm in length and the left kidney measures 12.0 cm in length. There is no hydronephrosis. No shadowing renal calculi are identified. There is no sonographic evidence of contour deforming renal mass lesion. No perinephric fluid is identified. Bladder: The bladder is normal in appearance. Bilateral ureteral jets were seen. A single intrauterine gestation is noted in the pelvis. IMPRESSION: Normal sonographic examination of the kidneys and bladder. No hydronephrosis is seen. ACT 112: Negative or not required by law. Electronically signed by: Lg Restrepo M.D. 06/06/2024 11:38 AM MDM Narrative See ED Course section for further details of today's visit. The patient presents the emergency department with multiple complaints concerning for possible right pyelonephritis per history and exam. Urinalysis shows evidence for an infection. Renal ultrasound does not show evidence for hydronephrosis or obvious renal or ureteral calculi. Further review of labs shows a moderate leukocytosis with neutrophilic shift. Patient also is mildly hyponatremic. The remainder of her labs are otherwise normal. The patient still reported not feeling well at the time the patient's workup was completed. At this point, I did discuss the case further with the [facility] Hospitalist service, who will further evaluate the patient for admission/observation. History, examination and laboratory studies are most consistent with acute pyelonephritis. Laboratory studies do not show evidence for acute kidney injury. Laboratory studies also are not suggestive of otitis, cholecystitis or hepatitis. I do not suspect any complication of . Please see hospitalist dictations for further treatment and final disposition. Impression Pyelonephritis, Acute hyponatremia, Second trimester Discharge Plan Visit Data Chief Complaint: Vomiting Stated Complaint: FEVER, VOMITING, VOMITING BLOOD, WEAK, KIDNEY PAIN ED Provider: Pacheco Zambrano ED Midlevel Provider: Luke Estrada Discharge Problem: Pyelonephritis, Acute hyponatremia, Second trimester Patient Disposition: Home - Self-Care Discharge Instructions Interventions: ED Discharge Assessment Last Done: 06/06/24 15:07
[2024-06-06] MEDS: ACETAMINOPHEN 1,000 MG/100 ML VIAL IV STA (10:22)
[2024-06-06] MEDS: SODIUM CHLORIDE 0.9% 1,000 ML IV STA (10:22)
[2024-06-06] MEDS: ONDANSETRON INJ 2 MG/ML 2 ML VIAL IV STA (10:22)
[2024-06-06 10:43] LABS: Basophils # (auto) 0.01 K/uL (0.00-0.20); Basophils % (auto) 0.1 %; Eosinophils # (auto) 0.03 K/uL (0.00-0.50); Eosinophils % (auto) 0.2 %; Hematocrit (blood only) 34.1 % (37.0-47.0); Hemoglobin 11.5 g/dl (12.0-16.0); Immature Granulocytes % (auto) 0.7 %; Lymphocytes # (auto) 0.75 K/uL (1.20-3.40); Lymphocytes % (auto) 5.1 %; Mean Corpuscular Hemoglobin 28.2 pg (25.0-34.0); Mean Corpuscular Hgb Conc 33.7 g/dL (32.0-36.0); Mean Corpuscular Volume 83.6 fL (80.0-100.0); Mean Platelet Volume 10.4 fL (9.4-12.4); Monocytes # (auto) 1.12 K/uL (0.11-0.59); Monocytes % (auto) 7.6 %; Neutrophils # (auto) 12.78 K/uL (1.40-6.50); Neutrophils % (auto) 86.3 %; Platelet Count 221 K/uL (130-400); RDW Coefficient of Variation 13.6 % (11.5-14.5); RDW Standard Deviation 41.8 fL (36.4-46.3); Red Blood Count 4.08 M/uL (4.20-5.40); White Blood Count 14.79 K/ul (4.8-10.8)
[2024-06-06 10:55] LABS: Appearance Urine Turbid (Clear); Bacteria Urine Automated 3+ (None Seen); Bilirubin Urine 1+ (Negative); Blood Urine Negative (Negative); Color Urine Dark Yellow; Epithelial Cell Urine Auto >20 /hpf (0-2); Glucose Urine UA Negative (Negative); Ketones Urine 3+ (Negative); Leukocyte Esterase Urine 2+ (Negative); Nitrite Urine Negative (Negative); Protein Urine 2+ (Negative); Specific Gravity Urine 1.018 (1.000-1.030); Urobilinogen Urine Negative (Negative); WBC Urine Automated >50 /hpf (0-5)
[2024-06-06 11:03] LABS: Albumin Level 3.4 gm/dl (3.4-5.0); BUN Creatinine Ratio 8.8 (10-20); Bilirubin,Total 0.6 mg/dl (0.2-1.0); Calcium 8.3 mg/dl (8.6-10.3); Creatinine Clr Calc Pharmacy 172.7 ml/min; Est GFR (African American) 149.3 ml/min; Est GFR (Non-African American) 128.8 ml/min; Globulin 3.5 gm/dl (2.5-4.0); Potassium 3.5 mmol/L (3.5-5.1); Total Protein 6.9 gm/dl (6.0-8.3)
[2024-06-06] MEDS: cefTRIAXone SODIUM 2,000 MG/50 ML BAG IV STA (11:06)
[2024-06-06 11:09] LABS: Prothrombin Time 10.9 Seconds (9.0-12.0)
--- NOTE | 2024-06-06 11:41 | Ultrasound Report ---
ULTRASOUND KIDNEYS AND BLADDER CLINICAL HISTORY: Right flank pain. . Urinary tract infection. COMPARISON STUDY: No prior TECHNIQUE: Real-time, grayscale, and color flow sonography of the kidneys and bladder is performed. I mages are reviewed in the transverse and longitudinal planes. FINDINGS: Kidneys: The kidneys are normal in size and echotexture. The right kidney measures 12.6 cm in length and the left kidney measures 12.0 cm in length. There is no hydronephrosis. No shadowing renal calcu li are identified. There is no sonographic evidence of contour deforming renal mass lesion. No perine phric fluid is identified. Bladder: The bladder is normal in appearance. Bilateral ureteral jets were seen. A single intrauterine gestation is noted in the pelvis. IMPRESSION: Normal sonographic examination of the kidneys and bladder. No hydronephrosis is seen. ACT 112: Negative or not required by law. Electronically signed by: Lg Restrepo M.D. 06/06/2024 11:38 AM
--- NOTE | 2024-06-06 12:52 | History & Physical Report ---
Date of Service June 06, 2024 Assessment & Plan (1) Pyelonephritis: Plan: Right flank pain on admission, known E. coli UTI from 06/01 resistant only to ampicillin, failed outpatient nitrofurantoin Ceftriaxone 2g IV daily Follow up urine and blood cultures (2) Sepsis: Plan: Ordered blood cultures and lactate Addition LR 1L bolus now (3) Chest pain: Plan: Reassuringly reproducible on exam Acetaminophen PRN Possibly also GERD component (see pantoprazole below) Despite low suspicion of PE given reproducibility and GERD as alternative explanations (4) Third trimester : Plan: Daily NST testing Consult obstetrics (5) GERD (gastroesophageal reflux disease): Plan: Pantoprazole 40mg IV now then PO daily Plan VTE Prophylaxis - SCDs Diet - regular Disposition - admit to med/surg Admission and Anticipated Discharge Date Admission Date: June 06, 2024 History of Present Illness Chief Complaint: Fever, chills Primary Care Provider: NO PCP Carolyne Voss is a 25 year old 29 week female who presents to the ER with generalized weakness, nausea, urinary frequency, urgency, hematuria, right flank pain, chills. Symptoms started 5 days ago and she was diagnosed with a UTI subsequently culture gew E. coli resistant only to ampicillin. She was prescribed and started taking nitrofurantoin on June 03. Despite this her fevers started 2 days ago and she became more nauseous and less able to eat. She notes chest pain, no radiation, severity 2/10, reproducible on palpation just started today. No calf pain. She has been taking tums twice a day through a lot of her due to reflux. Not yet tried famotidine or pantoprazole. Allergies Allergy/AdvReac Type Severity Reaction Status Date / Time melatonin Allergy Hives Verified 06/06/24 12:09 Home Medications Medication Instructions Recorded Confirmed Type vit no.95-ferrous 1 tab PO DAILY 08/01/23 06/06/24 History fumarate 28 mg-folic acid 800 mcg tablet () nitrofurantoin 100 mg PO BID 7 days #14 caps 06/03/24 06/06/24 Rx monohydrate/macrocrystals 100 mg capsule (Macrobid) acetaminophen 500 mg tablet 500 mg PO Q6H PRN PAIN/FEVER 06/06/24 06/06/24 History Past Med/Surg History Problem List (Updated 06/07/24 @ 06:50 by Ant Salter MD) Chest pain Acute hyponatremia (Acute) GERD (gastroesophageal reflux disease) Third trimester Sepsis Second trimester (Acute) Pyelonephritis (Acute) Palpitations Encounter for anatomic survey Supervision of normal intrauterine in multigravida Oral contraceptive pill surveillance Seizure disorder Depression Asthma Diarrhea Migraines Medical History depression Pineal gland cyst Hx of migraines Surgical History S/P wisdom tooth extraction Hx of tonsillectomy Hx of cholecystectomy Hx of appendectomy Family History Grandfather (Paternal) Cancer Father Heart disease Diabetes Grandmother (Paternal) Lung disease Aunt Kidney disease Mother Diabetes Social History Smoking Status: Never smoker Second Hand Exposure: No; Do You Dip or Chew Tobacco: No; Hx Alcohol Use: No Hx Substance Use: No Preferred Language: Maori Communication Ability: Effective Deck Lid Fitter Required: No Beliefs That Will Affect Care: None marital status: marital status details: Sharan (26) [phone] Current Living Situation: Spouse Current Living Situation Comment: Lives with , daughter, no pets current occupational status: 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 Childhood Exposure to Second-Hand Smoke: Yes Diet: regular caffeine: Yes Dental Care, Regularly: No Seatbelt Use: always Sunscreen Use: Yes Do you think of yourself as: straight/heterosexual Sexual Activity: has been sexually active within the last 12 months Gender Identity: Female Assistive Devices: None Review of Systems Review of Systems: All systems reviewed & are unremarkable except as noted in HPI & below Physical Exam Constitutional: WD/WN, vitals as above no acute distress Eyes: + anicteric sclerae; normal pupil size ENMT: Mouth: + dry oral mucous membranes Neck: trachea midline, no thyromegaly Respiratory: normal respiratory effort, lungs clear to auscultation Cardiovascular: Rate/Rhythm: regular rhythm and + tachycardic Heart Sounds: no murmur Extremities: + pedal edema (trace) Chest (Breasts): Additional Comments: Chest pain reproducible on exam Gastrointestinal (Abdomen): normal bowel sounds, soft, nontender, no hepatosplenomegaly Skin: no rashes, warm and dry (no areas of cellulitis) Neurologic: moves all extremities and awake; not confused Psychiatric: A+Ox3, euthymic affect Genitourinary: + CVA tenderness (right) Results & Data Results & Data Vital Signs (Past 12 Hours) Vital Signs Temp Pulse Pulse Resp BP BP Pulse Ox 06/06/24 11:40 98 H 16 108/64 95 06/06/24 09:47 37.5 C 130 H 26 H 103/70 98 O2 Del Method 06/06/24 11:40 Room Air 06/06/24 09:47 Room Air Laboratory Results Abnormal lab results 06/06/24 Range/Units 10:24 WBC 14.79 H (4.8-10.8) K/ul RBC 4.08 L (4.20-5.40) M/uL Hgb 11.5 L (12.0-16.0) g/dl Hct 34.1 L (37.0-47.0) % Neut # (Auto) 12.78 H (1.40-6.50) K/uL Lymph # (Auto) 0.75 L (1.20-3.40) K/uL [place] # (Auto) 1.12 H (0.11-0.59) K/uL Sodium 133 L (136-145) mmol/L BUN 5 L (6-23) mg/dl Creatinine 0.57 L (0.6-1.2) mg/dl BUN/Creatinine Ratio 8.8 L (10-20) Glucose 104 H (70-99(Fasting)) mg/dl Calcium 8.3 L (8.6-10.3) mg/dl AST 11 L (13-39) U/L Urine Appearance Turbid A (Clear) Urine Protein 2+ H (Negative) Urine Ketones 3+ H (Negative) Urine Bilirubin 1+ H (Negative) Ur Leukocyte Esterase 2+ H (Negative) Urine WBC (Auto) >50 H (0-5) /hpf Urine RBC (Auto) 6-10 H (0-2) /hpf U Hyaline Cast (Auto) 6-10 H (0-2) /lpf U Epithel Cells (Auto) >20 H (0-2) /hpf Urine Bacteria (Auto) 3+ H (None Seen) Diagnostic Findings ULTRASOUND KIDNEYS AND BLADDER CLINICAL HISTORY: Right flank pain. . Urinary tract infection. COMPARISON STUDY: No prior TECHNIQUE: Real-time, grayscale, and color flow sonography of the kidneys and bladder is performed. Images are reviewed in the transverse and longitudinal planes. FINDINGS: Kidneys: The kidneys are normal in size and echotexture. The right kidney measures 12.6 cm in length and the left kidney measures 12.0 cm in length. There is no hydronephrosis. No shadowing renal calculi are identified. There is no sonographic evidence of contour deforming renal mass lesion. No perinephric fluid is identified. Bladder: The bladder is normal in appearance. Bilateral ureteral jets were seen. A single intrauterine gestation is noted in the pelvis. IMPRESSION: Normal sonographic examination of the kidneys and bladder. No hydronephrosis is seen. Medications Administered ER Medications Given: NSS 1L bolus Ondansetron 4mg IV Acetaminophen 1000mg IV Ceftriaxone 2000mg IV ECG Rate (beats per minute): 97 Rhythm: normal sinus Findings: + T-wave inversion (Inferior) Comparison ECG Date: from (Jan 01, 2024) Change: the following changes noted (TWI in inferior leads are new) Code Status & VTE Plan Code Status Full VTE Prophylaxis Plan VTE Prophylaxis will be ordered: No PG Care Time/CCT Total # of Minutes Spent Total Time Spent with Patient: Total time spent is greater than 50% in coordination of care (as documented) at patient's floor/unit and/or counseling patient: Coding Level of Care Code 99050 INT INP/OBS CARE 3/75MIN Diagnoses Pyelonephritis N12 Sepsis A41.9 Chest pain R07.9 Third trimester Z34.93 GERD (gastroesophageal reflux disease) K21.9
--- NOTE | 2024-06-06 13:26 | OB/GYN Consultation ---
Date of Consultation June 06, 2024 Assessment & Plan (1) Pyelonephritis: She will be admitted to the medical service and we appreciate their input in her care during this . (2) Supervision of normal intrauterine in multigravida: As far as any other testing needs that needs to be done during her admission, a daily nonstress test should be done which will be carried out by our labor and delivery nurses. If she should experience any increased abdominal cramping pain vaginal bleeding or concerns for movement, we will reassess for the symptoms as well as needed History of Present Illness Reason for Consultation: 28 6/7 weeks gestation with pyelonephritis Requesting Physician: Ant Salter MD Attending Physician: Fior Sommers MD History of Present Illness Patient is a 24-year-old 2 para 1-0-0-1 female EDC of 08/23/2024 who presented to the emergency room this morning with nausea vomiting and a fever of 103 F. She also was experiencing right flank pain. Baby has been active. She denies any abdominal cramping or contractions. She has had no vaginal bleeding or change in vaginal discharge recently. She was seen last on 06/01/2024 for routine OB visit where she had 28-week lab work done as well as a urine culture which is routine at that time of . The urine culture grew out E. coli which was pansensitive. She was having no symptoms of urinary frequency urgency or burning at that time nor does she apparently have any of the symptoms now. She began taking Macrobid approximately 3 days ago. For the last 2 days she has felt warm with general malaise and fatigue accompanied by back pain. She has been taking Tylenol to address these symptoms. However she began to have increasing flank pain and an increase in her temperature which brought her to the emergency room. is also been complicated by acid reflux and she has been taking Tums for this but it has not been effective. She did have vomiting this morning with some flecks of blood present. has also been complicated by obesity and chronic migraine headaches as well as a brain cyst that is being followed by neurology. Allergies Allergy/AdvReac Type Severity Reaction Status Date / Time melatonin Allergy Hives Verified 06/06/24 12:09 Home Medications Medication Instructions Recorded Confirmed Type vit no.95-ferrous 1 tab PO DAILY 08/01/23 06/06/24 History fumarate 28 mg-folic acid 800 mcg tablet () nitrofurantoin 100 mg PO BID 7 days #14 caps 06/03/24 06/06/24 Rx monohydrate/macrocrystals 100 mg capsule (Macrobid) acetaminophen 500 mg tablet 500 mg PO Q6H PRN PAIN/FEVER 06/06/24 06/06/24 History Patient History Medical History depression Pineal gland cyst Hx of migraines Surgical History S/P wisdom tooth extraction Hx of tonsillectomy Hx of cholecystectomy Hx of appendectomy Family History Grandfather (Paternal) Cancer Father Heart disease Diabetes Grandmother (Paternal) Lung disease Aunt Kidney disease Mother Diabetes Social History Smoking Status: Never smoker Second Hand Exposure: No; Do You Dip or Chew Tobacco: No; Hx Alcohol Use: No Hx Substance Use: No Preferred Language: Yoruba Communication Ability: Effective Production Assembly Supervisor Required: No Beliefs That Will Affect Care: None marital status: marital status details: Sharan (26) [phone] Current Living Situation: Spouse and Family Current Living Situation Comment: Lives with , daughter, no pets current occupational status: employed current occupation: Nurse at [employer] Feels Safe at Home: Yes Childhood Exposure to Second-Hand Smoke: Yes Diet: regular caffeine: Yes Dental Care, Regularly: No Seatbelt Use: always Sunscreen Use: Yes Do you think of yourself as: straight/heterosexual Sexual Activity: has been sexually active within the last 12 months Gender Identity: Female Assistive Devices: None Review of Systems Review of Systems: All systems reviewed & are unremarkable except as noted in HPI & below Physical Exam Constitutional: WD/WN, vitals as above Psychiatric: A+Ox3, euthymic affect Genitourinary: OB Exam Abdomen: + fundal height (28 weeks) Fundus: not tender Results & Data Vital Signs (Past 12 Hours) Vital Signs Temp Pulse Pulse Resp BP BP Pulse Ox 06/06/24 11:40 98 H 16 108/64 95 06/06/24 09:47 99.5 F 130 H 26 H 103/70 98 O2 Del Method 06/06/24 11:40 Room Air 06/06/24 09:47 Room Air PG Care Time/CCT Total # of Minutes Spent Total Time Spent with Patient: Total time spent is greater than 50% in coordination of care (as documented) at patient's floor/unit and/or counseling patient: Coding Level of Care Code 98628 IN/OBS CONSULT LVL 2,35M Diagnoses Pyelonephritis N12 Supervision of normal intrauterine in multigravida in third trimester Z34.83 Trimester: third trimester (2) Supervision of normal intrauterine in multigravida Trimester: third trimester Qualified Code(s): Z34.83 - Encounter for supervision of other normal , third trimester
[2024-06-06] MEDS: LACTATED RINGER'S 1,000 ML IV ONE ×2 (13:32→16:40)
[2024-06-06] MEDS: PANTOprazole 40 MG in SYRINGE 0 ML IV ONE (13:41)
[2024-06-06] MEDS: ACETAMINOPHEN 325 MG TAB PO PRN (16:51)
[2024-06-06] MEDS ORDERED: PROMETHAZINE HCL 12.5 MG/10 ML UDP PO PRN (17:14)
[2024-06-06] MEDS: PYRIDOXINE HCL 50 MG TAB PO PRN (17:20)
[2024-06-06] MEDS: LACTATED RINGER'S 1,000 ML IV SCH (17:51)
[2024-06-07 07:51] LABS: Basophils # (auto) 0.02 K/uL (0.00-0.20); Basophils % (auto) 0.3 %; Eosinophils # (auto) 0.06 K/uL (0.00-0.50); Eosinophils % (auto) 0.9 %; Hematocrit (blood only) 27.3 % (37.0-47.0); Immature Granulocytes # (auto) 0.06 K/uL (0.01-0.20); Immature Granulocytes % (auto) 0.9 %; Lymphocytes # (auto) 0.87 K/uL (1.20-3.40); Lymphocytes % (auto) 12.7 %; Mean Corpuscular Hemoglobin 28.2 pg (25.0-34.0); Mean Corpuscular Volume 85.6 fL (80.0-100.0); Mean Platelet Volume 10.5 fL (9.4-12.4); Monocytes % (auto) 8.7 %; Neutrophils # (auto) 5.26 K/uL (1.40-6.50); Neutrophils % (auto) 76.5 %; Platelet Count 175 K/uL (130-400); RDW Coefficient of Variation 13.7 % (11.5-14.5); RDW Standard Deviation 43.3 fL (36.4-46.3); Red Blood Count 3.19 M/uL (4.20-5.40); White Blood Count 6.87 K/ul (4.8-10.8)
[2024-06-07] MEDS: PANTOprazole 40 MG TAB PO SCH (07:52)
[2024-06-07 08:05] LABS: Anion Gap 6 (3-11); BUN Creatinine Ratio 8.5 (10-20); Blood Urea Nitrogen 4 mg/dl (6-23); Calcium 7.4 mg/dl (8.6-10.3); Carbon Dioxide 23 mmol/L (21-32); Chloride 106 mmol/L (98-107); Creatinine Clr Calc Pharmacy 216.2 ml/min; Est GFR (African American) > 150.0 ml/min; Est GFR (Non-African American) 137.3 ml/min; Glucose 90 mg/dl (70-99(Fasting)); Potassium 3.2 mmol/L (3.5-5.1); Sodium 135 mmol/L (136-145)
--- NOTE | 2024-06-07 08:37 | Obstetrical Progress Note ---
Date of Service June 07, 2024 Assessment & Plan (1) Third trimester : Plan: we will continue to follow along with medicine-we appreciate your care would recommend knee high SCD's if she is going not going to be ambulating on a regular basis (2) Pyelonephritis: Admission and Anticipated Discharge Date Admission Date: June 06, 2024 Subjective continues to have right flank pain. just had episode of sweating as fever resolved. baby continues to be active. no abdominal cramping, vaginal bleeding or change in discharge noted. yesterday's NST was reassuring. Review of Systems Review of Systems: All systems reviewed & are unremarkable except as noted in HPI & below Physical Exam Constitutional: WD/WN, vitals as above Musculoskeletal: (+) right CVAT Psychiatric: A+Ox3, euthymic affect Results & Data Vital Signs (Past 12 Hours) Vital Signs Temp Pulse Resp BP Pulse Ox O2 Del Method 06/07/24 07:15 97.9 F 89 16 97/67 L 95 Room Air 06/07/24 03:50 99.1 F PG Care Time/CCT Total # of Minutes Spent Total Time Spent with Patient: Total time spent is greater than 50% in coordination of care (as documented) at patient's floor/unit and/or counseling patient: Coding Level of Care Code 51523 SUB INP/OBS CARE 1/25MIN Diagnoses Third trimester Z34.93 Pyelonephritis N12
[2024-06-07] MEDS ORDERED: NON-FORMULARY MEDICATION (Pnv Cmb#95-Ferrous Fumarate-Fa [Prenatal] 28 mg iron- 800 mcg Ta PO SCH (09:00)
--- NOTE | 2024-06-07 11:01 | Hospitalist Progress Note ---
Date of Service June 07, 2024 Assessment & Plan (1) Pyelonephritis: Plan: Patient presents to the hospital on account of Right flank pain, known E. coli UTI from 06/01 resistant only to ampicillin, failed outpatient nitrofurantoin Ceftriaxone 2g IV daily Follow up urine and blood cultures, Negative so far Clinically patient feels a whole lot better (2) Sepsis: Plan: Resolving following antibiotics and IV fluids (3) Chest pain: Plan: Reassuringly reproducible on exam Acetaminophen PRN Possibly also GERD component (see pantoprazole below) Despite low suspicion of PE given reproducibility and GERD as alternative explanations (4) Third trimester : Plan: Daily NST testing Consult obstetrics, Appreciate commendations (5) GERD (gastroesophageal reflux disease): Plan: Pantoprazole 40mg IV now then PO daily Plan VTE Prophylaxis - SCDs Diet - regular Disposition - Continue to monitor in the hospital Admission and Anticipated Discharge Date Admission Date: June 06, 2024 Subjective Patient seen and examined, complained of fevers or chills overnight, Scheduled to have another stress test for the baby Review of Systems Review of Systems: All systems reviewed are negative, apart from the ones contained in the history. Physical Exam Physical Exam: The patient is awake, alert and oriented 3, well developed and well nourished, normocephalic and atraumatic, lying in bed and in no acute distress. HEENT--PERRL, EOMI, mucous membranes and oropharynx mildly dry Neck--supple. No JVD. No bruits. Thyroid normal, trachea midline, no adenopathy. Heart--normal S1 and S2. No murmurs, rubs or gallops. Lungs--clear bilaterally, no respiratory distress, no accessory muscle use. Abdomen--normal bowel sounds and soft. abdomen Extremities--no cyanosis or clubbing. No edema. Dermatologic--normal skin turgor, normal color, no abnormal lymph nodes, no rash. Neurologic--cranial nerves II through XII grossly intact. Rheumatologic--normal range of motion. Psychiatric--normal affect. Results & Data Results & Data Vital Signs (Past 12 Hours) Vital Signs Temp Pulse Resp BP Pulse Ox O2 Del Method 06/07/24 07:15 97.9 F 89 16 97/67 L 95 Room Air 06/07/24 03:50 99.1 F PG Care Time/CCT Total # of Minutes Spent Total Time Spent with Patient: Total time spent is greater than 50% in coordination of care (as documented) at patient's floor/unit and/or counseling patient: Coding Level of Care Code 09718 SUB INP/OBS CARE 2/35MIN Diagnoses Pyelonephritis N12 Sepsis A41.9 Chest pain R07.9 Third trimester Z34.93 GERD (gastroesophageal reflux disease) K21.9 Time Spent (min) 35
[2024-06-07] MEDS: cefTRIAXone SODIUM 2,000 MG/50 ML BAG IV SCH (11:03)
--- NOTE | 2024-06-07 12:26 | Ultrasound Report ---
US OB BPP w NST single CLINICAL HISTORY: indeterminate baseline COMPARISON STUDY: Obstetrical ultrasound 05/04/2024. FINDINGS: heart rate is 134 BPM. The fetus is in a breech presentation. movement, tone, a nd breathing was identified during the examination. Amniotic fluid index is approximately 18 cm. Ther efore, the biophysical profile score is 8 out of 8. The ultrasound age is approximately 32 weeks and 5 days +/- 2 weeks and 2 days. A anatomic survey was not performed. IMPRESSION: 1. A single viable 32 week and 5 day intrauterine gestation. 2. Biophysical profile score is 8 out of 8. ACT 112: Negative or not required by law. Electronically signed by: Talon Plaza M.D. 06/07/2024 12:25 PM
--- NOTE | 2024-06-07 12:45 | Electrocardiogram Report ---
Test Reason : Blood Pressure : / mmHG Vent. Rate : 097 BPM Atrial Rate : 097 BPM P-R Int : 164 ms QRS Dur : 080 ms QT Int : 354 ms P-R-T Axes : 013 011 002 degrees QTc Int : 449 ms Normal sinus rhythm Normal ECG When compared with ECG of 01-JAN-2024 00:19, Inverted T waves have replaced nonspecific T wave abnormality in Inferior leads Confirmed by Vishal Khalil ([id number]) on 06/07/2024 12:44:47 PM Referred By: REFERRED SELF Confirmed By:Vishal Khalil
[2024-06-07] MEDS: LACTATED RINGER'S 1,000 ML IV SCH (17:45)
[2024-06-07] MEDS: POTASSIUM CHLORIDE CRTAB 20 MEQ TABCR PO STA (18:07)
[2024-06-07] MEDS: LACTATED RINGER'S 500 ML IV ONE (19:12)
[2024-06-07] MEDS ORDERED: Nursing to Pharmacy Communication SCH (20:45)
[2024-06-08 06:40] LABS: Hematocrit (blood only) 25.8 % (37.0-47.0); Hemoglobin 8.5 g/dl (12.0-16.0); Mean Corpuscular Hemoglobin 28.3 pg (25.0-34.0); Mean Corpuscular Hgb Conc 32.9 g/dL (32.0-36.0); Mean Platelet Volume 10.4 fL (9.4-12.4); Platelet Count 175 K/uL (130-400); RDW Coefficient of Variation 13.8 % (11.5-14.5); RDW Standard Deviation 43.5 fL (36.4-46.3); White Blood Count 5.19 K/ul (4.8-10.8)
[2024-06-08 07:08] LABS: Anion Gap 4 (3-11); BUN Creatinine Ratio 8.5 (10-20); Blood Urea Nitrogen 4 mg/dl (6-23); Calcium 7.6 mg/dl (8.6-10.3); Carbon Dioxide 26 mmol/L (21-32); Chloride 107 mmol/L (98-107); Creatinine Clr Calc Pharmacy 216.2 ml/min; Est GFR (African American) > 150.0 ml/min; Est GFR (Non-African American) 137.3 ml/min; Glucose 82 mg/dl (70-99(Fasting)); Potassium 3.7 mmol/L (3.5-5.1); Sodium 137 mmol/L (136-145)
--- NOTE | 2024-06-08 08:39 | Obstetrical Progress Note ---
Date of Service June 08, 2024 Assessment & Plan (1) Third trimester : Plan: CVAT has resolved, she has been afebrile for over 24 hours. Hgb has dropped to 8.5 - most likely because she was hemoconcentrated and dehydrated prior to admission. she admits that her fluid intake has not been adequate for several weeks. there is a hemodilution factor at this point in but erring on side of caution, will do one dose iron infusion today prior to discharge pending medicine's approval for discharge she is agreeable to the iron infusion and will then do daily iron supplement po going forward. will recheck H&H in 4 weeks. she had a significant bleed from a sulcal tear last so any help in getting to a normal H&H will be helpful. also we will let po antibiotic choice for after discharge up to medicine's recs. Admission and Anticipated Discharge Date Admission Date: June 06, 2024 Subjective feeling much better- was able to sleep all night. CVAT has resolved. voiding larger amounts of urine that is now much less concentrated after fluid bolus yesterday. baby active. Review of Systems Review of Systems: All systems reviewed & are unremarkable except as noted in HPI & below Physical Exam Constitutional: WD/WN, vitals as above Musculoskeletal: no CVAT bilaterally Psychiatric: A+Ox3, euthymic affect Genitourinary: fundus nontender Results & Data Vital Signs (Past 12 Hours) Vital Signs Temp Pulse Pulse Resp BP BP Pulse Ox 06/08/24 07:15 97.7 F 88 18 98/57 L 97 06/08/24 02:28 97.8 F 90 18 94/66 L 99 06/07/24 22:00 98.2 F 78 18 119/70 98 06/07/24 20:59 88 99/54 L O2 Del Method 06/08/24 07:15 Room Air 06/08/24 02:28 Room Air 06/07/24 22:00 Room Air 06/07/24 20:59 PG Care Time/CCT Total # of Minutes Spent Total Time Spent with Patient: Total time spent is greater than 50% in coordination of care (as documented) at patient's floor/unit and/or counseling patient: Coding Level of Care Code 18809 SUB INP/OBS CARE 2/35MIN Diagnoses Third trimester Z34.93
[2024-06-08] MEDS: IRON SUCROSE 300 MG in SODIUM CHLORIDE 0.9% 250 ML IV ONE (09:34)
--- NOTE | 2024-06-08 11:21 | Hospitalist Progress Note ---
Date of Service June 08, 2024 Assessment & Plan (1) Pyelonephritis: Plan: Patient presents to the hospital on account of Right flank pain, known E. coli UTI from 06/01 resistant only to ampicillin, failed outpatient nitrofurantoin Ceftriaxone 2g IV daily Follow up urine and blood cultures, Negative so far Clinically patient feels a whole lot better Will discharge on a short course of p.o. cephalexin (2) Sepsis: Plan: Resolving following antibiotics and IV fluids (3) Chest pain: Plan: Reassuringly reproducible on exam Acetaminophen PRN Possibly also GERD component (see pantoprazole below) Despite low suspicion of PE given reproducibility and GERD as alternative explanations (4) Third trimester : Plan: Daily NST testing Consult obstetrics, Appreciate commendations (5) GERD (gastroesophageal reflux disease): Plan: Pantoprazole 40mg IV now then PO daily Plan VTE Prophylaxis - SCDs Diet - regular Disposition - Continue to monitor in the hospital, Hopefully discharge in next 24 hours Admission and Anticipated Discharge Date Admission Date: June 06, 2024 Subjective Patient seen and examined this morning, feels overall better, flank pain has resolved also slept better and tolerating diet. Feels the kick of her baby Review of Systems Review of Systems: All systems reviewed are negative, apart from the ones contained in the history. Physical Exam Physical Exam: The patient is awake, alert and oriented 3, well developed and well nourished, normocephalic and atraumatic, lying in bed and in no acute distress. HEENT--PERRL, EOMI, mucous membranes and oropharynx mildly dry Neck--supple. No JVD. No bruits. Thyroid normal, trachea midline, no adenopathy. Heart--normal S1 and S2. No murmurs, rubs or gallops. Lungs--clear bilaterally, no respiratory distress, no accessory muscle use. Abdomen--normal bowel sounds and soft. abdomen Extremities--no cyanosis or clubbing. No edema. Dermatologic--normal skin turgor, normal color, no abnormal lymph nodes, no rash. Neurologic--cranial nerves II through XII grossly intact. Rheumatologic--normal range of motion. Psychiatric--normal affect. Results & Data Results & Data Vital Signs (Past 12 Hours) Vital Signs Temp Pulse Resp BP Pulse Ox O2 Del Method 06/08/24 11:03 97.9 F 94 H 16 100/74 99 Room Air 06/08/24 07:15 97.7 F 88 18 98/57 L 97 Room Air 06/08/24 02:28 97.8 F 90 18 94/66 L 99 Room Air PG Care Time/CCT Total # of Minutes Spent Total Time Spent with Patient: Total time spent is greater than 50% in coordination of care (as documented) at patient's floor/unit and/or counseling patient: Coding Level of Care Code 98502 SUB INP/OBS CARE 2/35MIN Diagnoses Pyelonephritis N12 Sepsis A41.9 Chest pain R07.9 Third trimester Z34.93 GERD (gastroesophageal reflux disease) K21.9 Time Spent (min) 35
--- NOTE | 2024-06-08 13:53 | Discharge Summary ---
Date of Service June 08, 2024 Admission HPI Per Admitting Provider Carolyne Voss is a 25 year old 29 week female who presents to the ER with generalized weakness, nausea, urinary frequency, urgency, hematuria, right flank pain, chills. Symptoms started 5 days ago and she was diagnosed with a UTI subsequently culture gew E. coli resistant only to ampicillin. She was prescribed and started taking nitrofurantoin on June 03. Despite this her fevers started 2 days ago and she became more nauseous and less able to eat. She notes chest pain, no radiation, severity 2/10, reproducible on palpation just started today. No calf pain. She has been taking tums twice a day through a lot of her due to reflux. Not yet tried famotidine or pantoprazole. Principal Diagnosis pyelonephritis Discharge Exam The patient is awake, alert and oriented 3, well developed and well nourished, normocephalic and atraumatic, lying in bed and in no acute distress. HEENT--PERRL, EOMI, mucous membranes and oropharynx mildly dry Neck--supple. No JVD. No bruits. Thyroid normal, trachea midline, no adenopathy. Heart--normal S1 and S2. No murmurs, rubs or gallops. Lungs--clear bilaterally, no respiratory distress, no accessory muscle use. Abdomen--normal bowel sounds and soft. abdomen Extremities--no cyanosis or clubbing. No edema. Dermatologic--normal skin turgor, normal color, no abnormal lymph nodes, no rash. Neurologic--cranial nerves II through XII grossly intact. Rheumatologic--normal range of motion. Psychiatric--normal affect. Discharge Data Allergies Allergy/AdvReac Type Severity Reaction Status Date / Time melatonin Allergy Hives Verified 06/06/24 12:09 Consultations 06/06/24 12:39 ED Decision to Admit Stat 06/06/24 12:52 Consult Obstetrics Routine Ordered Studies 06/06/24 10:05 US Renal Bladder [US renal/blad retro comp] Stat 06/07/24 10:54 US OB BPP w NST single Stat Hospital Course (1) Pyelonephritis: Patient presents to the hospital on account of Right flank pain, known E. coli UTI from 06/01 resistant only to ampicillin, failed outpatient nitrofurantoin Ceftriaxone 2g IV daily Follow up urine and blood cultures, Negative so far Clinically patient feels a whole lot better Will discharge on a short course of p.o. cephalexin (2) Sepsis: Resolving following antibiotics and IV fluids (3) Chest pain: Reassuringly reproducible on exam Acetaminophen PRN Possibly also GERD component (see pantoprazole below) Despite low suspicion of PE given reproducibility and GERD as alternative explanations (4) Third trimester : Daily NST testing Consult obstetrics, Appreciate commendations (5) GERD (gastroesophageal reflux disease): Pantoprazole 40mg IV now then PO daily Plan VTE Prophylaxis - SCDs Diet - regular Disposition - Continue to monitor in the hospital, Hopefully discharge in next 24 hours Total Time Total Time Spent Total Time Spent (In Minutes): 35 Discharge Plan Discharge Items Patient Disposition: Home - Self-Care Reason For Visit: SEPSIS, UTI Discharge Diagnosis: pyelonephritis Activity: Resume your previous activity Non-emergency contact: Primary Care Provider and Test Fixture Designer Call non-emergency contact if: you have any medication questions Follow-up/Referrals: PCP,NO [Primary Care Provider] - Diet: Regular Addtl Attending Provider Instructions: please follow up with your Obgyn as soon as possible Pending Studies at Discharge: No Stand-Alone Forms: My [employer], Work/School Release, Smoking Cessation Medications and DC Order Prescriptions: New cephalexin 500 mg capsule 500 mg PO BID 5 Days Qty: 10 0RF Continued PNV cmb#95-ferrous fumarate-FA [] 28 mg iron- 800 mcg Tablet 1 tab PO DAILY acetaminophen 500 mg Tablet 500 mg PO Q6H PRN (Reason: PAIN/FEVER) Discontinued nitrofurantoin monohyd/m-cryst [Macrobid] 100 mg capsule 100 mg PO BID 7 Days Qty: 14 0RF Rx Instructions: must administer with a meal/food. Start Date 06/03/24 x7 day supply Discharge Orders: Discharge Order (Routine); Ordered 06/08/24 Ordered By: Evaristo Guerra Admission Data Admit Date/Time: 06/06/24 12:42 Attending Provider: Evaristo Guerra Admit Provider: Ant Salter Primary Care Provider: PCP,NO Other Providers: Ant Salter; Fior Sommers Coding Level of Care Code 76422 INP/OBS DISCH >30 MIN Diagnoses Pyelonephritis N12 Sepsis A41.9 Chest pain R07.9 Third trimester Z34.93 GERD (gastroesophageal reflux disease) K21.9 Time Spent (min) 35
== END 2024-06-08 14:45 | disposition home or self-care (01) | DRG 831 ==
LOC: ED 09:39 → 3W 12:42 → SUATTDRO 12:42 → 3W 15:07 → 4S1 06-07 17:19 → 4E1 06-07 21:59

== ENCOUNTER 2024-08-17 14:15 | Inpatient (IN) ==
--- NOTE | 2024-08-18 11:39 | History & Physical Report ---
Date of Service August 18, 2024 Assessment & Plan (1) Encounter for induction of labor: Plan: 24 years +1 at 39 w 2d POG planned for El IOL today. No active complains Maternal Vitlas: Stable FHT Category 1. Cervix: Dilated 1 cm; Effacement : 50%; Station -1 Plan: IOL as per protocol Admission and Anticipated Discharge Date Admission Date: August 18, 2024 History of Present Illness Chief Complaint: Came for IOL today. Primary Care Provider: NO PCP Patient is a 24 yo female +1 currently at 39 2/7 WGA with an RAMOS 08/03/2024 as determined by US who is here for elective induction. H/O Pyelonephritis, Seizure disorder, Depression, Asthma, Migraines. Denies contractions; movement present; fluid loss; bloody show. External FHT and external uterine monitors used; category 1 tracing; normal FHT variability Had regular appointments with OB. H/O migraines and brain cyst(found on MRI)--sees Neuro, -MRI from 08/14--small pineal cyst (not concerning per neuro), mild cerebellar tonsillar ectopia Labs: Blood type:O+ve Antibody screen: _ve Hgb: 11.9 gm% GBS: Neg USG ( 06/29) efw= 48%/ ac= 31% Breech presentation P1: with extensive 2nd degree laceration upto fornices, 3 years. Allergies Allergy/AdvReac Type Severity Reaction Status Date / Time melatonin Allergy Hives Verified 08/18/24 12:14 Home Medications Medication Instructions Recorded Confirmed Type vit no.95-ferrous 1 tab PO DAILY 08/01/23 08/18/24 History fumarate 28 mg-folic acid 800 mcg tablet () acetaminophen 500 mg tablet 500 mg PO Q6H PRN PAIN/FEVER 06/06/24 08/18/24 History ferrous sulfate 325 mg (65 mg 325 mg PO DAILY 06/15/24 08/18/24 History iron) tablet (Feosol) albuterol sulfate 90 mcg/actuation 2 puff inhalation Q12H PRN asthma 08/18/24 08/18/24 History aerosol inhaler (Proventil HFA) calcium carbonate 500 mg PO DAILY PRN Heartburn 08/18/24 08/18/24 History Patient History Medical History depression Pineal gland cyst Hx of migraines Surgical History S/P wisdom tooth extraction Hx of tonsillectomy Hx of cholecystectomy Hx of appendectomy Family History Grandfather (Paternal) Cancer Father Heart disease Diabetes Grandmother (Paternal) Lung disease Aunt Kidney disease Mother Diabetes Social History Smoking Status: Never smoker Second Hand Exposure: No; Do You Dip or Chew Tobacco: No; Hx Alcohol Use: No Hx Substance Use: No Preferred Language: Italian Communication Ability: Effective Associate Professor Of Criminal Justice Required: No Beliefs That Will Affect Care: None marital status: marital status details: Sharan (26) [phone] Current Living Situation: Spouse Current Living Situation Comment: Lives with , daughter, no pets current occupational status: employed current occupation: Nurse at [employer] Feels Safe at Home: Yes Safety Concerns: Feels Safe At This Time Childhood Exposure to Second-Hand Smoke: Yes Diet: regular caffeine: Yes Dental Care, Regularly: No Seatbelt Use: always Sunscreen Use: Yes Do you think of yourself as: straight/heterosexual Sexual Activity: has been sexually active within the last 12 months Gender Identity: Female Assistive Devices: None Review of Systems Denies fever, chills, sweats. Denies SOB, difficulty breathing, chest pain, palpitations, and chest pressure. Denies breast pain. Denies dysuria. Denies headache or changes in vision. Physical Exam Physical Exam: General: Alert and oriented. No acute distress CV: Regular rate and rhythm. No murmurs. Respiratory: CTA bilaterally. No rhonchi, wheezes, or crackles. No increased work of breathing. Abdomen: Gravid; Soft, nontender upon palpation Pelvic: Dilated 1 cm; Effacement : 50%; Station -[address] Echevarria Lower extremities: No LE edema. No deep calf pain. Walt's negative bilaterally. Supervising Physician Co-Signing Physician Notes Resident Physician Supervision Note: I interviewed and examined the patient. Discussed with Dr. Varma and agree with findings and plan as documented in the note. Any exceptions or clarifications are listed here: 24 yo at 39 2/7 wga presents for eIOL. +FM; denies ctx, LOF, VB. PNI: hx migraines/brain cyst - no concerns from neuro, bmi > 35. SVE /-2, post/med. EFW 7-8. Fetus cat 1, irreg ctx. 35cc dodd placed after consent obtained, tolerated well. Will start pit, gbs neg, epidural prn Documented By: Britney Camarena MD Resident Activity Tracking Resident Involvement: Resident Care Provided Care Provided: OB Delivery
[2024-08-18] MEDS ORDERED: LIDOCAINE 1% LOCAL 20 ML VIAL INFIL PRN (11:49)
[2024-08-18] MEDS ORDERED: OXYTOCIN 30 UNITS/NSS 30 UNITS/500 ML BAG IV PRN (11:49)
[2024-08-18 12:57] LABS: Hematocrit (blood only) 36.6 % (37.0-47.0); Hemoglobin 12.3 g/dl (12.0-16.0); Mean Corpuscular Hemoglobin 28.2 pg (25.0-34.0); Mean Corpuscular Hgb Conc 33.6 g/dL (32.0-36.0); Mean Corpuscular Volume 83.9 fL (80.0-100.0); Mean Platelet Volume 11.1 fL (9.4-12.4); Platelet Count 208 K/uL (130-400); RDW Coefficient of Variation 13.9 % (11.5-14.5); RDW Standard Deviation 42.8 fL (36.4-46.3); Red Blood Count 4.36 M/uL (4.20-5.40); White Blood Count 10.55 K/ul (4.8-10.8)
[2024-08-18] MEDS: LACTATED RINGER'S 1,000 ML IV PRN (13:15)
[2024-08-18] MEDS: OXYTOCIN 30 UNITS/NSS 30 UNITS/500 ML BAG IV PRN (13:30)
[2024-08-18] MEDS ORDERED: ONDANSETRON INJ 2 MG/ML 2 ML VIAL IV PRN (14:48)
[2024-08-18] MEDS ORDERED: diphenhydrAMINE 50 MG/ML VIAL IV PRN (14:48)
[2024-08-18] MEDS ORDERED: fentaNYL citrate PF 100 MCG/2 ML VIAL EPI PRN (14:48)
[2024-08-18] MEDS ORDERED: ROPIVACAINE 0.5% PF 5 MG/ML 20 ML VIAL EPI PRN (14:48)
[2024-08-18] MEDS ORDERED: BUPIVACAINE 0.25% PF 30 ML VIAL EPI PRN (14:48)
[2024-08-18] MEDS ORDERED: SODIUM CHLORIDE 0.9% PF INJ 10 ML VIAL EPI PRN (14:48)
[2024-08-18] MEDS ORDERED: NALBUPHINE HCL INJ 10 MG/ML AMP IV PRN (14:48)
[2024-08-18] MEDS ORDERED: NALOXONE HCL 1 MG in SODIUM CHLORIDE 0.9% 1,000 ML IV PRN (14:48)
[2024-08-18] MEDS ORDERED: NALOXONE HCL 0.4 MG/1 ML VIAL/CARP IV PRN (14:48)
[2024-08-18] MEDS ORDERED: LIDOCAINE 2% MPF LOCAL 5 ML VIAL EPI PRN (14:48)
--- NOTE | 2024-08-18 14:48 | Anesthesiology Consultation ---
Date of Service August 18, 2024 Assessment & Plan ASA ASA2 Proposed Anesthesia Anesthesia Type: Labor Epidural Risk / Benefits Reviewed With: PT / POA / Parent / Guardian, Accepts Plan and Informed Consent Obtained History Height/Weight Height: 5 ft 6 in Weight: 100.244 kg Allergies Allergy/AdvReac Type Severity Reaction Status Date / Time melatonin Allergy Hives Verified 08/18/24 12:14 Medications Home Medications Medication Instructions Recorded Confirmed Last Taken vit no.95-ferrous 1 tab PO DAILY 08/01/23 08/18/24 08/17/24 07:00 fumarate 28 mg-folic acid 800 mcg tablet () acetaminophen 500 mg tablet 500 mg PO Q6H PRN PAIN/FEVER 06/06/24 08/18/24 08/17/24 12:00 ferrous sulfate 325 mg (65 mg 325 mg PO DAILY 06/15/24 08/18/24 08/17/24 07:00 iron) tablet (Feosol) albuterol sulfate 90 mcg/actuation 2 puff inhalation Q12H PRN asthma 08/18/24 08/18/24 Unknown aerosol inhaler (Proventil HFA) calcium carbonate 500 mg PO DAILY PRN Heartburn 08/18/24 08/18/24 08/17/24 07:00 Active Medications Generic Name Dose Route Start Last Admin Trade Name Freq PRN Reason Stop Dose Admin Lactated Ringer's 1,000 mls @ 125 mls/hr 08/18/24 11:49 08/18/24 13:15 Lr IV 08/20/24 11:48 125 mls/hr .Q8H PRN Administration L&D Protocol Protocol Oxytocin 30 units in 500 mls @ 4 mls/hr 08/18/24 12:29 08/18/24 14:00 Pitocin 30 Units/Nss IV 08/20/24 12:28 0.24 units/hr .Q24H PRN 4 mls/hr Labor Induction/Augmentation Titration Protocol 0.24 UNITS/HR Past Medical History Medical History depression Pineal gland cyst Hx of migraines Exercise / Class Metabolic Activity II 4-5 Yardwork/Stairs/Walk up hill Past Family History Family History Grandfather (Paternal) Cancer Father Heart disease Diabetes Grandmother (Paternal) Lung disease Aunt Kidney disease Mother Diabetes Past Surgical History Surgical History S/P wisdom tooth extraction Hx of tonsillectomy Hx of cholecystectomy Hx of appendectomy Past Anesthesia History No Hx of Anesthesia Complications and No Family Hx of Anesthesia Complications History of PONV No Hx of PONV and No Hx of Motion Sickness Social History Smoking Status: Never smoker Do You Dip or Chew Tobacco: No Hx Alcohol Use: No Hx Substance Use: No substance use type: does not use Review of Systems denies fever/cough/ colds/ chest pain/ SOB/ CONNER denies CONNER Physical Exam Vital Signs Last Vital Signs Temp 36.6 C 08/18/24 13:30 Pulse 77 08/18/24 14:30 Resp 18 08/18/24 13:30 BP 116/65 08/18/24 14:30 ENMT Mouth: no TMJ abnormality and no dentition abnormality Thyromental Distance: > or= 3.5 Finger Breadths Mallampati Class: II Neck neck extension not limited Respiratory normal respiratory effort; no respiratory distress Auscultation: lungs clear to auscultation bilaterally Cardiovascular Rate/Rhythm: regular rate and regular rhythm Neurologic moves all extremities Psychiatric Orientation: alert and oriented x 3 Testing Laboratory Results 08/18/24 12:15
[2024-08-18] MEDS: LIDOCAINE 2%/EPINEPHRINE 1:200,000 20 ML PF ONE (15:20)
[2024-08-18] MEDS: BUPIVACAINE 0.25% PF 30 ML VIAL ONE (15:20)
[2024-08-18] MEDS: fentaNYL citrate PF 100 MCG/2 ML VIAL ONE (15:20)
[2024-08-18] MEDS: ePHEDrine sulfate 50 MG/ML AMP ONE (15:24)
[2024-08-18] MEDS: fentANYL 2 MCG/ML BUPIVacaine 0.125%-NSS 100ML BAG ONE (15:31)
[2024-08-18] MEDS: BUPIVACAINE 0.25% PF 30 ML VIAL EPI STA (15:36)
[2024-08-18] MEDS: SODIUM CHLORIDE 0.9% PF INJ 10 ML VIAL ONE (15:36)
[2024-08-18] MEDS: fentaNYL citrate PF 100 MCG/2 ML VIAL EPI STA (15:36)
[2024-08-18] MEDS: LIDOCAINE 2%/EPINEPHRINE 1:200,000 20 ML PF EPI STA (15:37)
[2024-08-18] MEDS: SODIUM CHLORIDE 0.9% PF INJ 10 ML VIAL EPI STA (15:37)
--- NOTE | 2024-08-18 15:51 | Communication Note ---
Date of Service: August 18, 2024 pt c/o headache with sitting up for the epidural. there were no signs of a wet tap from touey/catheter. pt did have ~ 30 point drop in SBP. [facility]
[2024-08-18] MEDS: ACETAMINOPHEN 1,000 MG/100 ML VIAL IV PRN (15:55)
--- NOTE | 2024-08-18 17:40 | Labor Progress Brief Note ---
Date of Service August 18, 2024 Subjective comfortable w/ epidural Assessment & Plan (1) Encounter for induction of labor: Plan: 24 yo at 39 2/7 wga admitted for eiol VSS Fetus cat 1 labor - dodd out and now s/p arom, pit at [address] Admission and Anticipated Discharge Date Admission Date: August 18, 2024 Physical Exam Genitourinary: Manual OB Exam: + cervical dilation 4 cm, + cervical effacement 50%, + station -2 and + amniotic fluid (srom noted, then arom of forebag) OB Exam Monitor Tracing: + external FHT monitor used, + external uterine monitor used (q3-4) and + category I (120/mod/+accel/-decel) Results & Data Vital Signs (Past 12 Hours) Vital Signs Temp Pulse Resp BP Pulse Ox 08/18/24 17:35 100 08/18/24 17:35 75 08/18/24 17:30 100 08/18/24 17:30 80 08/18/24 17:25 98 08/18/24 17:25 65 08/18/24 17:22 75 08/18/24 17:22 93/51 L 08/18/24 17:20 98 08/18/24 17:20 69 08/18/24 17:15 99 08/18/24 17:15 73 08/18/24 17:10 100 08/18/24 17:10 81 08/18/24 17:06 89 08/18/24 17:06 94/51 L 08/18/24 17:05 100 08/18/24 17:05 88 08/18/24 17:00 100 08/18/24 17:00 92 H 08/18/24 16:55 99 08/18/24 16:55 76 08/18/24 16:52 85 08/18/24 16:52 100/55 L 08/18/24 16:50 99 08/18/24 16:50 83 08/18/24 16:45 98 08/18/24 16:45 74 08/18/24 16:43 92 08/18/24 16:43 90 08/18/24 16:40 100 08/18/24 16:40 84 08/18/24 16:37 85 08/18/24 16:37 90/55 L 08/18/24 16:35 99 08/18/24 16:35 70 08/18/24 16:30 99 08/18/24 16:30 85 08/18/24 16:25 100 08/18/24 16:25 90 08/18/24 16:21 90 08/18/24 16:21 98/61 L 08/18/24 16:20 99 08/18/24 16:20 96 H 08/18/24 16:15 98 08/18/24 16:15 84 08/18/24 16:10 98 08/18/24 16:10 73 08/18/24 16:06 93 H 08/18/24 16:06 95/57 L 08/18/24 16:05 98 08/18/24 16:05 95 H 08/18/24 16:00 99 08/18/24 16:00 102 H 08/18/24 15:55 100 08/18/24 15:55 87 08/18/24 15:54 16 08/18/24 15:54 97.9 F 16 08/18/24 15:53 96 H 08/18/24 15:53 95/54 L 08/18/24 15:50 100 08/18/24 15:50 96 H 08/18/24 15:45 99 08/18/24 15:45 96 H 08/18/24 15:40 99 08/18/24 15:40 93 H 08/18/24 15:35 99 08/18/24 15:35 95 H 08/18/24 15:31 84 08/18/24 15:31 102/59 L 08/18/24 15:30 99 08/18/24 15:30 90 08/18/24 15:26 96 H 08/18/24 15:26 103/55 L 08/18/24 15:25 98 08/18/24 15:25 87 08/18/24 15:24 98 H 08/18/24 15:24 104/59 L 08/18/24 15:22 96 H 08/18/24 15:22 95/53 L 08/18/24 15:22 89 08/18/24 15:22 99/54 L 08/18/24 15:20 98 08/18/24 15:20 89 08/18/24 15:16 86 08/18/24 15:16 128/89 09/24/24 15:15 98 08/18/24 15:15 98 H 08/18/24 15:10 100 08/18/24 15:10 92 H 08/18/24 15:05 100 08/18/24 15:05 107 H 08/18/24 15:00 99 08/18/24 15:00 74 08/18/24 14:55 98 08/18/24 14:55 82 08/18/24 14:50 98 08/18/24 14:50 72 08/18/24 14:30 77 08/18/24 14:30 116/65 08/18/24 13:32 83 08/18/24 13:32 111/69 08/18/24 13:30 18 08/18/24 13:30 97.9 F 18 08/18/24 12:15 97.9 F 96 H 18 122/70 08/18/24 11:41 96 H 122/70 Coding Level of Care Code None Diagnoses Encounter for induction of labor Z34.90
[2024-08-18] MEDS: ePHEDrine sulfate 50 MG/ML AMP IV PRN (18:06)
[2024-08-18] MEDS: fentANYL 2 MCG/ML BUPIVacaine 0.125%-NSS 100ML BAG EPI PRN (22:26)
--- NOTE | 2024-08-19 02:22 | Delivery Summary ---
Vaginal Delivery Summary Date of Service August 19, 2024 Vaginal Delivery Summary [facility] PREOPERATIVE DIAGNOSIS: 1. Single intrauterine at 39 3/7 wga 2. Elective iol POSTOPERATIVE DIAGNOSIS: 1. Single intrauterine at 39 3/7 wga 2. Elective iol 3. Delivered PROCEDURE: 1. Normal spontaneous vaginal delivery. SURGEON: Britney Camarena MD ANESTHESIA: Epidural. QUANTITATIVE BLOOD LOSS: 9 mL FLUIDS: Continuous LR. URINE OUTPUT: None. COMPLICATIONS: None. CONDITION: Stable. INDICATIONS: 24 yo at 39 3/7 wga presented for eIOL. She was 1cm on arrival and 35cc dodd bulb placed with pitocin. She received an epidural for pain control and underwent AROM. She then progressed to complete and desired to push FINDINGS: A viable male , weight pending with Apgars of 7 and 8 at 1 and 5 minutes respectively. True knot seen in cord SPECIMEN: Cord blood OPERATIVE REPORT: The patient progressed to 10 cm, 100% effaced and +2 station, pushed over intact perineum with anesthesia to deliver a viable male , weight and Apgars as above. Head of delivered in CANDICE position. Nuchal cord was delivered through. Body and shoulders were delivered without difficulty. was delivered to maternal abdomen and nursing staff. Delayed cord clamping was performed for 60 seconds. Cord was clamped and cut. Cord blood was obtained. Placenta delivered spontaneously intact with 3-vessel cord. IV oxytocin and fundal massage were given for excellent hemostasis. Vagina, cervix, perineum, and placenta were inspected. A small vaginal laceration was repaired with 3-0 vicryl in a figure of eight stitch, there was excellent hemostasis. Sponge and needle counts correct x2. No sponges were left behind. Mother and stable in immediate period. [facility] [place] Vaginal Delivery Charge Vaginal Delivery Codes: 20652 global code for the antepartum, delivery, and post- Delivery Type Details: [facility]
[2024-08-19] MEDS ORDERED: HYDROCORTISONE ACETATE 25 MG SUPP PR PRN (02:57)
[2024-08-19] MEDS ORDERED: bisacodyL 10 MG SUPP PR PRN (02:57)
[2024-08-19] MEDS ORDERED: OXYTOCIN 30 UNITS/NSS 30 UNITS/500 ML BAG IV PRN (02:57)
[2024-08-19] MEDS ORDERED: ALBUTEROL HFA 8 GM INHALER INH PRN (02:57)
[2024-08-19] MEDS: ACETAMINOPHEN 325 MG TAB PO PRN (05:13)
[2024-08-19] MEDS: DIPHTHER/TETAN/PERTUS Vaccine (Tdap, Adol/Adult) 0.5mL IM ONE (05:15)
[2024-08-19] MEDS: IBUPROFEN 600 MG TAB PO PRN (05:56)
[2024-08-19] MEDS: BENZOCAINE 20% SPRY 85 APPLN/85 GM CAN EXT PRN (07:22)
[2024-08-19] MEDS: FERROUS SULFATE 325 MG TAB PO SCH (07:23)
[2024-08-19] MEDS: PRENATAL VITAMIN 1 TAB PO SCH (07:23)
[2024-08-19] MEDS: DOCUSATE SODIUM 100 MG CAP PO SCH (07:23)
--- NOTE | 2024-08-19 09:47 | Anesthesia Procedure Note ---
Date of Service August 19, 2024 Anesthesia Post Epidural Note Vital Signs Vital Signs: Temp Pulse Resp BP Pulse Ox O2 Del Method 36.7 C 70 18 113/77 97 Room Air 08/19/24 07:30 08/19/24 07:30 08/19/24 07:30 08/19/24 07:30 08/19/24 07:30 08/19/24 07:30 Pain Intensity Lower Abdomen: Pain Intensity: 3 Notes Mental Status: alert / awake / arousable Nausea / Vomiting: adequately controlled Pain: adequately controlled Airway Patency, RR, SpO2: stable & adequate BP & HR: stable & adequate Hydration State: stable & adequate Neuraxial Anesthesia: was administered and sensory block is resolving Anesthetic Complications: no major complications apparent and Pt Satisfied with anesthetic care Epidural: Removed without complications and With tip intact
[2024-08-19 19:04] VITALS: RESP 18
[2024-08-20 00:51] VITALS: O2SAT 97
--- NOTE | 2024-08-20 07:45 | Obstetrical Progress Note ---
Date of Service August 20, 2024 Assessment & Plan (1) Vaginal delivery: Plan: Both mom and baby doing well. Discharge today as per protocol. Encouraged nursing with mothers milk. Admission and Anticipated Discharge Date Admission Date: August 18, 2024 Supervising Physician Co-Signing Physician Notes Patient seen with resident and agree with the above findings and plan. Stable for discharge. Subjective 2nd PP Day following with Laceration in 25 years at 39+4 week POG. No active complains Both mom and baby doing well. Pain: Mild, intermittent Lochia: Mild Diet: Regular Ob diet Gas: Passed Peeing: Normal, no bladder distension Ambulation: Normally Review of Systems Review of Systems: No SOB, chest pain, leg pain No dizziness, headache, palpitation No Blurring of vision , fever Physical Exam Physical Exam: General: Alert and oriented. No acute distress. CVS: S1 S2+ No murmurs, regular rhythm. Respiratory: CTA bilaterally. No rhonchi, wheezes, or crackles. No increased work of breathing. Abdomen: Bowel sound +. Soft, nontender Uterus: Fundus firm and palpable suprapubic. Lower extremities: No LE edema. No deep calf pain. Results & Data Vital Signs (Past 12 Hours) Vital Signs Temp Pulse Resp BP Pulse Ox O2 Del Method 08/19/24 23:45 37.4 C 66 18 119/76 97 Room Air Resident Activity Tracking Resident Involvement: Resident Care Provided Care Provided: OB Delivery
[2024-08-20 09:46] VITALS: BP 111/74; PULSE 77; TEMP 98.4
[2024-08-20] MEDS ORDERED: bisacodyL 5 MG TABEC PO SCH (20:00)
== END 2024-08-20 14:10 | disposition home or self-care (01) | DRG 806 ==
LOC: 4S1 08-18 11:20 → 4E2 08-19 05:22

== ENCOUNTER 2025-02-01 18:38 | Observation (INO) ==
[2025-02-01] MEDS: FAMOTIDINE 20MG IV PUSH 20 MG/5 ML SYR IV STA (19:18)
[2025-02-01] MEDS: SODIUM CHLORIDE 0.9% 1,000 ML IV ONE ×3 (19:18→21:34)
[2025-02-01] MEDS: PROMETHAZINE 12.5 MG/50.5 ML BAG IV STA ×2 (19:18→21:48)
[2025-02-01] MEDS: diphenhydrAMINE 50 MG/ML VIAL IV STA (19:18)
--- NOTE | 2025-02-01 19:21 | Emergency Department Note ---
Impression & Plan Back pain, Nausea & vomiting, Dehydration, Acute viral syndrome, ED Provider Note ED Provider Note NAME: SHARLENE SUE AGE:24 SEX: Female : 2000 ARRIVES VIA: Private vehicle INFORMANT: Patient ED PROVIDER(s): Livier Olivarez DO CHIEF COMPLAINT: Back pain, nausea vomiting, recent UTI, HPI: This is a 24-year-old female at 13 weeks who presents to the emergency department due to concern for persistent nausea vomiting, recent diarrhea, worsening back pain, recent UTI. Patient states she was treated for urinary tract infection with a weeks worth of antibiotic the end of December. She does not know the culture results. She states her symptoms never felt improved and when she was done with the antibiotics they felt worse. She began to develop increasing lower abdominal pain and then low back pain. Patient states she called her OB today due to the persistent worsening symptoms and was instructed to see her PCP. She went to her PCPs office and was instructed to come to the ER for additional IV fluids and IV medication. Patient was previously prescribed Phenergan at home for related nausea and vomiting however has been unable to keep that down. She has also had several days of diarrhea and thought perhaps she had picked up a virus. She denies noting any blood in the stool. No recent vaginal bleeding or discharge. No blood in the emesis. She states she feels weak and dizzy additionally. She had a fever as high as 102 F. PAST MEDICAL HISTORY:See Below PAST SURGICAL HISTORY:See Below FAMILY HISTORY:See Below SOCIAL HISTORY:See Below HOME MEDICATIONS:See Below ALLERGIES:See Below VITALS:See Below PHYSICAL EXAMINATION: GENERAL: alert, unwell appearing, well nourished, no distress, non-toxic EYE EXAM: normal conjunctiva, PERRL and EOM's grossly intact OROPHARYNX: no exudate, no erythema, lips, buccal mucosa, and tongue normal and mucous membranes are moist NECK: supple, no nuchal rigidity, no adenopathy, non-tender LUNGS: Clear to auscultation. Normal chest wall mechanics, no w/r/r HEART: no murmurs, S1 normal and S2 normal ABDOMEN: abdomen soft, discomfort with palpation across the lower abd, normo- active bowel sounds, no masses, no rebound or guarding.Fundus note palpable. BACK: Back is symmetrical on inspection and there is no deformity, +b/l CVA tenderness R>L, pain with palpation across the lumbar region SKIN: no rashes, petechiae, orbruising UPPER EXTREMITIES: upper extremities are grossly normal. FROM, nml pulses b/l. LOWER EXTREMITIES: No pitting edema. FROM, nml pulses b/l. NEURO EXAM: Normal sensorium, cranial nerves II-XII grossly intact, normal speech, no facial droop,nogross weakness of arms, no gross weakness of legs. Gross sensation intact. No ataxia. Vital Signs: reviewed and remarkable Differential Diagnosis: Viral syndrome, UTI, pyelonephritis, hyperemesis gravidarum, dehydration, CRUZ, medication ADR, as well as others were considered MEDICAL DECISION MAKING: Patient has no contributory family history. Patient was first seen and observation began at 1840 and was necessary in order to evaluate symptoms and provide IV rehydration and IV antiemetics while monitoring for improvement. Upon re-evaluation, 8 hours of observation revealed that the patient would require further inpatient management. Discharge from observation at 0240. This is a 24-year-old female who presents emergency department due to ongoing nausea, vomiting, diarrhea, worsening back pain, and recent UTI. She was most concerned for evolving pyelonephritis which she has had previously. She was afebrile, tachycardic but otherwise hemodynamically stable on arrival. Labs drawn and sent, IV established, patient monitored on telemetry. She was started on IV fluids. A nasal swab for viral respiratory panel was obtained and patient was also sent for a renal ultrasound. heart tones obtained at bedside and reassuring. She was given IV Phenergan and IV Benadryl as well as IV Pepcid at bedside further recent nausea and vomiting. The nausea was slightly improved into her second liter of IV fluids however she still complained of persistent back pain so she was given a dose of IV morphine. She did require repeat doses of antiemetics and repeat doses of IV morphine additionally. She was given IV Tylenol additionally after enough time had passed as she has taken Tylenol prior to evaluation in the ER. Patient's labs are reassuring. Nasal swab positive for enterovirus/rhinovirus which could be contributing to her symptoms additionally. Renal ultrasound reassuring, no evidence of hydronephrosis, nephrolithiasis, or fulminant pyelonephritis. Patient required 4 L of IV fluids prior to producing a small urine specimen. Urine not overtly suggestive of UTI and will be sent for culture however given recent urinary tract infection and prior history of UTIs as well as pyelonephritis in , she was given a dose of IV Rocephin. Patient was continued on additional IV fluids however still did not feel she was well enough to return home due to persistent nausea and pain. After 8 hours of attempted rehydration and symptomatic control in the emergency department, case discussed with the hospitalist team for additional evaluation and management. Consultation(s): 0240: Discussed with Dr. Nguyen, [place] hospitalist team, for additional evaluation and mgmt. ER Treatment Provided: See below Diagnostics Interpreted By Me: -Cardiac Monitoring: An order was placed for continuous cardiac monitoring. The monitor shows a rate of 70 with normal sinus rhythm. -Laboratory studies: As stated above and show below. -Imaging studies: US renal: no obvious pyelo, no hydro, no stones Triage Nursing Note Reviewed Prior/Outside Records Reviewed Past Med/Surg History Problem List (Updated 02/02/25 @ 18:48 by Talon Jara PA-C) Enterovirus infection Acute diarrhea Intractable vomiting with nausea (Acute) Acute viral syndrome (Acute) Dehydration (Acute) Nausea & vomiting (Acute) Back pain (Acute) Encounter for anatomic survey Supervision of normal intrauterine in multigravida Seizure disorder Medical History (Updated 02/02/25 @ 18:48 by Talon Jara PA-C) Varicella vaccination Anxiety Acute hyponatremia GERD (gastroesophageal reflux disease) Sepsis Pyelonephritis Palpitations Depression Migraines Asthma depression Pineal gland cyst Surgical History S/P wisdom tooth extraction Hx of tonsillectomy Hx of cholecystectomy Hx of appendectomy Family History Grandfather (Paternal) Cancer Father Heart disease Diabetes Myocardial infarction Grandmother (Paternal) Lung disease Aunt Kidney disease Mother Diabetes Denies family history of Ovarian cancer Prostate cancer Breast cancer Colorectal cancer Social History (Updated 02/01/25 @ 10:58 by Lizbeth Uribe) Smoking Status: Never smoker Second Hand Exposure: No; Do You Dip or Chew Tobacco: No; Hx Alcohol Use: No Hx Substance Use: No Preferred Language: Hebrew Communication Ability: Effective Rn Burn Required: No Beliefs That Will Affect Care: None marital status: marital status details: Sharan (27) [phone] Current Living Situation: Family Current Living Situation Comment: Lives with , 2 children, dog visits current occupational status: employed current occupation: Nurse at [employer] How many Children do You have: 2 Other Information That Helps Us Care for You: No Feels Safe at Home: Yes Safety Concerns: Feels Safe At This Time Childhood Exposure to Second-Hand Smoke: Yes Diet: regular caffeine: Yes Dental Care, Regularly: No Physical Activity Frequency: Daily Seatbelt Use: always Sunscreen Use: Yes Do you think of yourself as: straight/heterosexual Sexual Activity: has been sexually active within the last 12 months Gender Identity: Female Assistive Devices: Glasses Allergies Allergies Allergy/AdvReac Type Severity Reaction Status Date / Time melatonin Allergy Hives Verified 02/01/25 14:57 Home Meds Home Medications Medication Instructions Recorded Confirmed acetaminophen 500 mg tablet 500 mg PO Q6H PRN PAIN/FEVER 06/06/24 02/02/25 vit no.133-ferrous 1 tab PO DAILY 01/18/25 02/02/25 fumarate 28 mg-folic acid 800 mcg tablet () ferrous sulfate PO 02/01/25 02/01/25 Previous Rx's Medication Instructions Recorded promethazine 12.5 mg tablet 12.5 mg PO Q6H PRN nausea and 01/06/25 vomiting #20 tabs nitrofurantoin 100 mg PO Q12H 5 days #10 caps 02/01/25 monohydrate/macrocrystals 100 mg capsule (Macrobid) Results & Data (ED) Vital Signs Vital Signs - 24 hr 02/01/25 19:00 02/01/25 20:16 02/01/25 22:00 Temperature Temperature Source Pulse Rate 93 H Pulse Rate [Right Finger] 78 75 Pulse Rhythm [Right Finger] Regular Regular Pulse Strength [Right Finger] Normal Normal Respiratory Rate 25 H 22 Respiratory Effort / Characteristics Non-Labored Non-Labored Respiratory Depth Normal Normal Respiratory Pattern Regular Regular Blood Pressure Blood Pressure [Right Arm] 116/80 128/79 Blood Pressure Mean Blood Pressure Mean [Right Arm] 92 95 Blood Pressure Position [Right Arm] Lying Lying Pulse Oximetry 100 99 Oxygen Delivery Method Room Air Room Air 02/01/25 23:03 02/02/25 00:00 02/02/25 02:00 Temperature 37 C Temperature Source Oral Pulse Rate 65 Pulse Rate [Right Finger] 72 74 Pulse Rhythm [Right Finger] Pulse Strength [Right Finger] Respiratory Rate 18 17 Respiratory Effort / Characteristics Non-Labored Spontaneous Non-Labored Spontaneous Respiratory Depth Normal Normal Respiratory Pattern Regular Regular Blood Pressure Blood Pressure [Right Arm] 120/73 114/78 Blood Pressure Mean Blood Pressure Mean [Right Arm] 88 90 Blood Pressure Position [Right Arm] Right Lateral Pulse Oximetry 95 98 Oxygen Delivery Method Room Air Room Air 02/02/25 02:56 02/02/25 03:06 02/02/25 03:33 Temperature Temperature Source Pulse Rate 76 75 106 H Pulse Rate [Right Finger] Pulse Rhythm [Right Finger] Pulse Strength [Right Finger] Respiratory Rate 19 20 Respiratory Effort / Characteristics Respiratory Depth Respiratory Pattern Blood Pressure 114/78 121/78 Blood Pressure [Right Arm] Blood Pressure Mean 90 92 Blood Pressure Mean [Right Arm] Blood Pressure Position [Right Arm] Pulse Oximetry 97 95 Oxygen Delivery Method Laboratory Data 02/01/25 18:59 02/01/25 18:59 Lab Results 02/01/25 02/01/25 02/02/25 Range/Units 18:59 20:03 00:24 WBC 9.57 (4.8-10.8) K/ul RBC 4.64 (4.20-5.40) M/uL Hgb 13.1 (12.0-16.0) g/dl Hct 38.2 (37.0-47.0) % MCV 82.3 (80.0-100.0) fL MCH 28.2 (25.0-34.0) pg MCHC 34.3 (32.0-36.0) g/dL RDW Std Deviation 39.5 (36.4-46.3) fL RDW Coeff of Eneida 13.2 (11.5-14.5) % Plt Count 246 (130-400) K/uL MPV 10.7 (9.4-12.4) fL Immature Gran % (Auto) 0.3 % Neut % (Auto) 71.9 % Lymph % (Auto) 21.9 % Aiken % (Auto) 4.5 % Eos % (Auto) 1.1 % Baso % (Auto) 0.3 % Neut # (Auto) 6.87 H (1.40-6.50) K/uL Lymph # (Auto) 2.10 (1.20-3.40) K/uL Aiken # (Auto) 0.43 (0.11-0.59) K/uL Eos # (Auto) 0.11 (0.00-0.50) K/uL Baso # (Auto) 0.03 (0.00-0.20) K/uL Immature Gran # (Auto) 0.03 (0.01-0.20) K/uL Sodium 136 (136-145) mmol/L Potassium 3.6 (3.5-5.1) mmol/L Chloride 106 (98-107) mmol/L Carbon Dioxide 24 (21-32) mmol/L Anion Gap 6 (3-11) BUN 9 (6-23) mg/dl Creatinine 0.65 (0.6-1.2) mg/dl Est Cr Clr Drug Dosing 156.4 ml/min eGFR 125.23 BUN/Creatinine Ratio 13.8 (10-20) Glucose 85 (70-99(Fasting)) mg/dl Calcium 9.0 (8.6-10.3) mg/dl Magnesium 1.8 (1.7-2.4) mg/dl Total Bilirubin 0.3 (0.2-1.0) mg/dl AST 15 (13-39) U/L ALT 17 (7-52) U/L Alkaline Phosphatase 34 (34-104) U/L Total Protein 7.1 (6.0-8.3) gm/dl Albumin 4.0 (3.4-5.0) gm/dl Globulin 3.1 (2.5-4.0) gm/dl Albumin/Globulin Ratio 1.3 (0.9-2) Procalcitonin < 0.02 (0-0.5) ng/ml Urine Color Yellow Urine Appearance Clear (Clear) Urine pH 5.5 (4.5-7.5) Ur Specific [place] 1.017 (1.000-1.030) Urine Protein Negative (Negative) Urine Glucose (UA) Negative (Negative) Urine Ketones Negative (Negative) Urine Blood Negative (Negative) Urine Nitrite Negative (Negative) Urine Bilirubin Negative (Negative) Urine Urobilinogen Negative (Negative) Ur Leukocyte Esterase 1+ H (Negative) Urine WBC (Auto) 6-10 H (0-5) /hpf Urine RBC (Auto) 0-2 (0-2) /hpf U Hyaline Cast (Auto) 0-2 (0-2) /lpf U Epithel Cells (Auto) 3-5 H (0-2) /hpf Urine Bacteria (Auto) None Seen (None Seen) Adenovirus (PCR) Not Detected (NotDetected) B. pertussis DNA (PCR) Not Detected (NotDetected) B.parapertussis DNA PCR Not Detected (NotDetected) C. pneumoniae DNA (PCR) Not Detected (NotDetected) Coronavirus OC43 (PCR) Not Detected (NotDetected) Coronavirus HKU1 (PCR) Not Detected (NotDetected) Coronavirus 229E (PCR) Not Detected (NotDetected) SARS-CoV-2 (PCR) Not Detected (NotDetected) Coronavirus NL63 (PCR) Not Detected (NotDetected) Human Metapneumovir PCR Not Detected (NotDetected) Influenza Type A (PCR) Not Detected (NotDetected) Influenza Type B (PCR) Not Detected (NotDetected) M. pneumoniae (PCR) Not Detected (NotDetected) Parainfluenza 1 (PCR) Not Detected (NotDetected) Parainfluenza 2 (PCR) Not Detected (NotDetected) Parainfluenza 3 (PCR) Not Detected (NotDetected) Parainfluenza 4 (PCR) Not Detected (NotDetected) RSV (PCR) Not Detected (NotDetected) Entero/Rhino (PCR) DETECTED A (NotDetected) Administered Medications Lactated Ringer's (Lr) 1,000 mls @ 80 mls/hr IV .[id number] NICOLE Stop: 03/04/25 05:50 Last Infusion: 02/02/25 11:43 Dose: 0 mls/hr Documented By: Admin: 02/02/25 06:28 Dose: 80 mls/hr Documented By: TESHA Promethazine HCl (Phenergan) 12.5 mg in 50.5 mls @ 202 mls/hr IV Q6H PRN PRN Reason: Nausea And Vomiting Stop: 03/04/25 05:50 Last Infusion: 02/02/25 10:34 Dose: Infused Documented By: Admin: 02/02/25 10:17 Dose: 202 mls/hr Documented By: MATTHIEU Acetaminophen (Ofirmev) 1,000 mg in 100 mls @ 400 mls/hr IV Q8H PRN PRN Reason: Pain or Fever Stop: 02/05/25 05:50 Last Infusion: 02/02/25 09:56 Dose: Infused Documented By: Admin: 02/02/25 09:16 Dose: 400 mls/hr Documented By: MATTHIEU Pantoprazole Sodium (Protonix) 40 mg in 10 mls @ 5 mls/min IV DAILY NICOLE Stop: 03/04/25 08:59 Last Admin: 02/02/25 09:15 Dose: 5 mls/min Documented By: MATTHIEU Pyridoxine HCl 100 mg/ Syringe 11 mls @ 2.2 mls/min IV DAILY NICOLE Stop: 03/04/25 10:59 Last Admin: 02/02/25 11:39 Dose: 2.2 mls/min Documented By: MATTHIEU Multivitamins 10 ml/ Sodium (Chloride) 510 mls @ 80 mls/hr IV DAILY@0900 NICOLE Stop: 03/04/25 10:59 Last Infusion: 02/02/25 18:04 Dose: Infused Documented By: Admin: 02/02/25 11:39 Dose: 80 mls/hr Documented By: MATTHIEU Miscellaneous (Remove Lidoderm Patch) 1 each N/A PM NICOLE Stop: 03/04/25 12:59 Last Admin: 02/02/25 14:09 Dose: 1 each Documented By: MATTHIEU Prenat Multivit/Navarro/Iron/Folic Ac ( Vitamin 1 Tab) 1 tab PO DAILY NICOLE Stop: 03/04/25 08:59 Last Admin: 02/02/25 10:30 Dose: 1 tab Documented By: MATTHIEU Discontinued Medications Diphenhydramine HCl (Diphenhydramine 50 Mg/Ml Vial) 12.5 mg IV NOW STA Stop: 02/01/25 19:09 Last Admin: 02/01/25 19:18 Dose: 12.5 mg Documented By: JAKE Sodium Chloride (Nss) 1,000 mls @ 999 mls/hr IV .Q1H1M ONE Stop: 02/01/25 20:08 Last Infusion: 02/01/25 20:26 Dose: Infused Documented By: Admin: 02/01/25 19:18 Dose: 999 mls/hr Documented By: JAKE Famotidine (Pepcid 20mg Iv Push) 20 mg in 5 mls @ 2.5 mls/min IV NOW STA Stop: 02/01/25 19:09 Last Admin: 02/01/25 19:18 Dose: 2.5 mls/min Documented By: JAKE Promethazine HCl (Phenergan) 12.5 mg in 50.5 mls @ 202 mls/hr IV NOW STA Stop: 02/01/25 19:22 Last Infusion: 02/01/25 19:36 Dose: Infused Documented By: Admin: 02/01/25 19:18 Dose: 202 mls/hr Documented By: JAKE Sodium Chloride (Nss) 1,000 mls @ 999 mls/hr IV .Q1H1M ONE Stop: 02/01/25 21:21 Last Infusion: 02/01/25 21:29 Dose: Infused Documented By: Admin: 02/01/25 20:26 Dose: 999 mls/hr Documented By: JAKE Sodium Chloride (Nss) 1,000 mls @ 999 mls/hr IV .Q1H1M ONE Stop: 02/01/25 22:28 Last Infusion: 02/01/25 22:39 Dose: Infused Documented By: Admin: 02/01/25 21:34 Dose: 999 mls/hr Documented By: JAKE Promethazine HCl (Phenergan) 12.5 mg in 50.5 mls @ 202 mls/hr IV NOW STA Stop: 02/01/25 21:58 Last Infusion: 02/01/25 22:24 Dose: Infused Documented By: Admin: 02/01/25 21:48 Dose: 202 mls/hr Documented By: JAKE Lactated Ringer's (Lr) 1,000 mls @ 999 mls/hr IV .Q1H1M ONE Stop: 02/01/25 23:39 Last Infusion: 02/01/25 23:50 Dose: Infused Documented By: COUNTS INCLUDE 234 BEDS AT [facility] Admin: 02/01/25 22:40 Dose: 999 mls/hr Documented By: JAKE Acetaminophen (Ofirmev) 1,000 mg in 100 mls @ 400 mls/hr IV NOW STA Stop: 02/01/25 23:41 Last Infusion: 02/02/25 00:12 Dose: Infused Documented By: Admin: 02/01/25 23:48 Dose: 400 mls/hr Documented By: DALLAS Ceftriaxone Sodium (Rocephin) 2,000 mg in 50 mls @ 100 mls/hr IV NOW STA Stop: 02/02/25 02:12 Last Infusion: 02/02/25 02:30 Dose: Infused Documented By: Admin: 02/02/25 01:55 Dose: 100 mls/hr Documented By: DALLAS Promethazine HCl (Phenergan) 12.5 mg in 50.5 mls @ 202 mls/hr IV NOW STA Stop: 02/02/25 01:58 Last Infusion: 02/02/25 02:54 Dose: Infused Documented By: Admin: 02/02/25 02:31 Dose: 202 mls/hr Documented By: DALLAS Sodium Chloride (Nss) 1,000 mls @ 999 mls/hr IV .Q1H1M ONE Stop: 02/02/25 02:44 Last Infusion: 02/02/25 05:07 Dose: Infused Documented By: Admin: 02/02/25 01:56 Dose: 999 mls/hr Documented By: DALLAS Lidocaine (Lidocaine 5% 1 Patch) 1 patch TD NOW STA Stop: 02/02/25 00:41 Last Admin: 02/02/25 00:54 Dose: 1 patch Documented By: DALLAS Morphine Sulfate (Morphine Sulfate 4 Mg/Ml 1 Ml Carp\Vial) 4 mg IV NOW STA Stop: 02/01/25 21:29 Last Admin: 02/01/25 21:34 Dose: 4 mg Documented By: JAKE Morphine Sulfate (Morphine Sulfate 2 Mg/Ml Carp) 2 mg IV NOW STA Stop: 02/02/25 00:41 Last Admin: 02/02/25 00:54 Dose: 2 mg Documented By: DALLAS Imaging Data Radiologist's Impression: Renal Ultrasound 02/01/25 19:08 Exam(s): US RENAL EXAM: US Retroperitoneal Limited, Renal CLINICAL HISTORY: Reason for exam: back pain, recent UTI, . TECHNIQUE: Real-time limited ultrasound of the retroperitoneum with image documentation. COMPARISON: 06/06/2024 FINDINGS: Right kidney: Measures 11.7 cm. No solid mass. No hydronephrosis. Left kidney: Measures 11.4 cm. No solid mass. No hydronephrosis. Bladder: Bladder is decompressed. Other findings: heart rate 163 bpm. IMPRESSION: No acute abnormality. Electronically signed by: Spike Maurice MD 02/01/25 21:23 PM Discharge Plan Visit Data Chief Complaint: Illness Stated Complaint: 13 W , VOMITING, LOWER BACK PAIN,UTI ED Provider: Livier Olivarez Discharge Problem: Back pain, Nausea & vomiting, Dehydration, Acute viral syndrome, Patient Disposition: Admitted As Inpatient Discharge Instructions Interventions: ED Discharge Assessment Last Done: 02/02/25 05:11
[2025-02-01 19:24] LABS: Basophils # (auto) 0.03 K/uL (0.00-0.20); Basophils % (auto) 0.3 %; Eosinophils # (auto) 0.11 K/uL (0.00-0.50); Eosinophils % (auto) 1.1 %; Hematocrit (blood only) 38.2 % (37.0-47.0); Hemoglobin 13.1 g/dl (12.0-16.0); Immature Granulocytes # (auto) 0.03 K/uL (0.01-0.20); Immature Granulocytes % (auto) 0.3 %; Lymphocytes % (auto) 21.9 %; Mean Corpuscular Hemoglobin 28.2 pg (25.0-34.0); Mean Corpuscular Hgb Conc 34.3 g/dL (32.0-36.0); Mean Corpuscular Volume 82.3 fL (80.0-100.0); Mean Platelet Volume 10.7 fL (9.4-12.4); Monocytes # (auto) 0.43 K/uL (0.11-0.59); Monocytes % (auto) 4.5 %; Neutrophils # (auto) 6.87 K/uL (1.40-6.50); Neutrophils % (auto) 71.9 %; Platelet Count 246 K/uL (130-400); RDW Coefficient of Variation 13.2 % (11.5-14.5); RDW Standard Deviation 39.5 fL (36.4-46.3); Red Blood Count 4.64 M/uL (4.20-5.40); White Blood Count 9.57 K/ul (4.8-10.8)
[2025-02-01 19:37] LABS: Albumin Globulin Ratio 1.3 (0.9-2); BUN Creatinine Ratio 13.8 (10-20); Bilirubin,Total 0.3 mg/dl (0.2-1.0); Creatinine Clr Calc Pharmacy 156.4 ml/min; Globulin 3.1 gm/dl (2.5-4.0); Magnesium 1.8 mg/dl (1.7-2.4); Potassium 3.6 mmol/L (3.5-5.1); Total Protein 7.1 gm/dl (6.0-8.3)
[2025-02-01 20:59] LABS: Adenovirus PCR Not Detected (NotDetected); Bordetella parapertussis PCR Not Detected (NotDetected); Bordetella pertussis PCR Not Detected (NotDetected); Chlamydia pneumoniae PCR Not Detected (NotDetected); Coronavirus 229E PCR Not Detected (NotDetected); Coronavirus CoV-2 (COVID19)PCR Not Detected (NotDetected); Coronavirus HKU1 PCR Not Detected (NotDetected); Coronavirus NL63 PCR Not Detected (NotDetected); Coronavirus OC43PCR Not Detected (NotDetected); Human Metapneumovirus PCR Not Detected (NotDetected); Influenza A PCR Not Detected (NotDetected); Influenza B PCR Not Detected (NotDetected); Mycoplasma pneumoniae PCR Not Detected (NotDetected); Parainfluenza Virus 1 PCR Not Detected (NotDetected); Parainfluenza Virus 2 PCR Not Detected (NotDetected); Parainfluenza Virus 3 PCR Not Detected (NotDetected); Parainfluenza Virus 4 PCR Not Detected (NotDetected); Respiratory Syncytial VirusPCR Not Detected (NotDetected); Rhinovirus/Enterovirus PCR DETECTED (NotDetected)
--- NOTE | 2025-02-01 21:24 | Ultrasound Report ---
Exam(s): US RENAL EXAM: US Retroperitoneal Limited, Renal CLINICAL HISTORY: Reason for exam: back pain, recent UTI, . TECHNIQUE: Real-time limited ultrasound of the retroperitoneum with image documentation. COMPARISON: 06/06/2024 FINDINGS: Right kidney: Measures 11.7 cm. No solid mass. No hydronephrosis. Left kidney: Measures 11.4 cm. No solid mass. No hydronephrosis. Bladder: Bladder is decompressed. Other findings: heart rate 163 bpm. IMPRESSION: No acute abnormality. Electronically signed by: Spike Maurice MD 02/01/25 21:23 PM
[2025-02-01] MEDS: MoRPHine SULFATE 4 MG/ML 1 ML CARP\\VIAL IV STA (21:34)
[2025-02-01] MEDS: LACTATED RINGER'S 1,000 ML IV ONE (22:40)
[2025-02-01] MEDS: ACETAMINOPHEN 1,000 MG/100 ML VIAL IV STA (23:48)
[2025-02-02 00:37] LABS: Appearance Urine Clear (Clear); Bacteria Urine Automated None Seen (None Seen); Bilirubin Urine Negative (Negative); Blood Urine Negative (Negative); Cast Urine Automated 0-2 /lpf (0-2); Color Urine Yellow; Glucose Urine UA Negative (Negative); Ketones Urine Negative (Negative); Leukocyte Esterase Urine 1+ (Negative); Nitrite Urine Negative (Negative); Protein Urine Negative (Negative); RBC Urine Automated 0-2 /hpf (0-2); Specific Gravity Urine 1.017 (1.000-1.030); Urobilinogen Urine Negative (Negative); pH Urine 5.5 (4.5-7.5)
[2025-02-02] MEDS: MoRPHine SULFATE 2 MG/ML CARP IV STA (00:54)
[2025-02-02] MEDS: LIDOCAINE 5% 1 PATCH TD STA (00:54)
[2025-02-02] MEDS: cefTRIAXone SODIUM 2,000 MG/50 ML BAG IV STA (01:55)
[2025-02-02] MEDS: SODIUM CHLORIDE 0.9% 1,000 ML IV ONE (01:56)
[2025-02-02] MEDS: PROMETHAZINE 12.5 MG/50.5 ML BAG IV STA (02:31)
--- NOTE | 2025-02-02 03:03 | History & Physical Report ---
Date of Service February 02, 2025 Assessment & Plan (1) Intractable vomiting with nausea: (2) Acute viral syndrome: (3) Acute diarrhea: (4) Back pain: (5) : Plan Patient is a 24-year-old female with a past medical history of chronic right- sided low back pain, anxiety, depression. She is 13 weeks and 5 days and tested positive for enterovirus in the ED. She has had nausea, vomiting, diarrhea, and bilateral flank pain for approximately 1 week along with inability to tolerate p.o. intake. She is being admitted for IV fluids and IV nausea control. #Intractable nausea/vomiting/diarrhea Biofire positive for rhinovirus/enterovirus isolation precautions 3L NSS bolus +1 L LR bolus in ED, will continue IV hydration with LR at 80 mL/hour x 1 bag Clear diet and advance as tolerated with nausea control IV Phenergan as needed stool cultures ordered Given Pepcid IV in ED - no adequate studies on safety in , defer further use Pantoprazole IV daily ordered, safe in #bilateral low back/flank pain history of chronic right sided low back pain/sciatica, patient reports this feels different History of sepsis 2/2 pyelonephritis in 05/2024, E. coli resistant to ampicillin Completed course of Keflex December 2024 for UTI, cultures grew 3 organisms, skin taz, no ID or sensitivities UA appears noninfectious on admission, likely contamination with epithelial cells - 1+ leukocyte esterase, 6-10 WBC, 3-5 epithelial cells kidney ultrasound negative for acute findings Given Rocephin x 1 in ED, will cover for 24 hours Defer further antibiotic use as likely noninfectious Follow urine cultures IV Tylenol as needed Continue lidocaine patch heating pad prn Defer further opioid use with #second trimester 13 weeks and 5 days, 012 heart tones 163 on renal ultrasound heart tones QS OB consulted - routine management, has not yet established care with OB during this defer further opioid use with , received 6 Mg morphine in ED continue vitamin VTE ppx: SCDs Diet: clears, advance as tolerated Dispo: MedSurg with continuous pulse ox after IV morphine in ED Possible discharge home 02/02 if symptoms improve Admission and Anticipated Discharge Date Admission Date: 02/02/25 History of Present Illness Chief Complaint: illness Primary Care Provider: SUSY Arciniega Patient is a 24-year-old female with a past medical history of chronic right- sided low back pain, anxiety, depression. She is 13 weeks and 5 days and tested positive for enterovirus in the ED. She has had nausea, vomiting, diarrhea, and bilateral flank pain for approximately 1 week along with inability to tolerate p.o. intake. She is being admitted for IV fluids and IV nausea cont rol. Patient seen at bedside. She stated she has a history of sepsis secondary to pyelonephritis in May 2024 and this back pain feels similar. She stated that this back pain feels different than her chronic right sided back pain which is thought to be due to sciatica. She stated she underwent a course of antibiotics for approximately a week that were prescribed at the end of December (noted Keflex prescribed 01/18/2025 in ED, cultures grew 3 organisms, no ID or sensitivities, probable skin taz). Patient called her CUTTING AND CREASING PRESS OPERATOR today who referred her to her PCP for her bilateral flank pain. Her PCP prescribed Macrobid however patient came into the ER for IV fluids and IV antiemetics. Patient stated her pain and nausea are relieved with IV Phenergan and IV morphine. She stated she has been vomiting approximately 4-5 times a day. The diarrhea started 3 days ago along with dizziness, lightheadedness, and generalized weakness thought to be secondary to dehydration. She also noted a t emperature of 100.2 F yesterday and has been taking Tylenol ever since. She denies any chest pain or shortness of breath. She denies any nicotine use. 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 She denies any sick contacts however could have contacts from work that are unknown. Allergies Allergy/AdvReac Type Severity Reaction Status Date / Time melatonin Allergy Hives Verified 02/01/25 14:57 Home Medications Medication Instructions Recorded Confirmed Type acetaminophen 500 mg tablet 500 mg PO Q6H PRN PAIN/FEVER 06/06/24 02/02/25 History promethazine 12.5 mg tablet 12.5 mg PO Q6H PRN nausea and 01/06/25 02/02/25 Rx vomiting #20 tabs vit no.133-ferrous 1 tab PO DAILY 01/18/25 02/02/25 History fumarate 28 mg-folic acid 800 mcg tablet () ferrous sulfate PO 03/10/25 03/10/25 History nitrofurantoin 100 mg PO Q12H 5 days #10 caps 02/01/25 02/02/25 Rx monohydrate/macrocrystals 100 mg capsule (Macrobid) Past Med/Surg History Problem List (Updated 02/02/25 @ 18:48 by Talon Jara PA-C) Enterovirus infection Acute diarrhea Intractable vomiting with nausea (Acute) Acute viral syndrome (Acute) Dehydration (Acute) Nausea & vomiting (Acute) Back pain (Acute) Encounter for anatomic survey Supervision of normal intrauterine in multigravida Seizure disorder Medical History (Updated 02/02/25 @ 18:48 by Talon Jara PA-C) Varicella vaccination Anxiety Acute hyponatremia GERD (gastroesophageal reflux disease) Sepsis Pyelonephritis Palpitations Depression Migraines Asthma depression Pineal gland cyst Surgical History S/P wisdom tooth extraction Hx of tonsillectomy Hx of cholecystectomy Hx of appendectomy Family History Grandfather (Paternal) Cancer Father Heart disease Diabetes Myocardial infarction Grandmother (Paternal) Lung disease Aunt Kidney disease Mother Diabetes Denies family history of Ovarian cancer Prostate cancer Breast cancer Colorectal cancer Social History (Updated 02/01/25 @ 10:58 by Lizbeth Uribe) Smoking Status: Never smoker Second Hand Exposure: No; Do You Dip or Chew Tobacco: No; Hx Alcohol Use: No Hx Substance Use: No Preferred Language: Urdu Communication Ability: Effective Crane Rigger Required: No Beliefs That Will Affect Care: None marital status: marital status details: Sharan (27) [phone] Current Living Situation: Family Current Living Situation Comment: Lives with , 2 children, dog visits current occupational status: employed current occupation: Nurse at [employer] How many Children do You have: 2 Other Information That Helps Us Care for You: No Feels Safe at Home: Yes Safety Concerns: Feels Safe At This Time Childhood Exposure to Second-Hand Smoke: Yes Diet: regular caffeine: Yes Dental Care, Regularly: No Physical Activity Frequency: Daily Seatbelt Use: always Sunscreen Use: Yes Do you think of yourself as: straight/heterosexual Sexual Activity: has been sexually active within the last 12 months Gender Identity: Female Assistive Devices: Glasses Review of Systems Review of Systems: see HPI Physical Exam Physical Exam: The patient is awake, alert and oriented 3, well developed and well nourished, normocephalic and atraumatic, in no acute distress. Non-toxic appearing. HEENT- EOMI, mucous membranes dry. Hearing grossly intact. Heart-normal S1 and S2. No murmurs, rubs or gallops. Lungs-clear bilaterally, no respiratory distress, no accessory muscle use. Abdomen-normal bowel sounds and soft. No ascites noted. Non-tender. Extremities- no clubbing, cyanosis, or edema. Rheumatologic-normal range of motion. Psychiatric-normal affect. Results & Data Results & Data Vital Signs (Past 12 Hours) Vital Signs Temp Pulse Pulse Resp BP BP Pulse Ox 02/02/25 02:56 76 02/02/25 02:00 74 17 114/78 98 02/02/25 00:00 37 C 72 18 120/73 95 02/01/25 23:03 65 02/01/25 22:00 75 22 128/79 99 02/01/25 20:16 78 25 H 116/80 100 02/01/25 19:00 93 H 02/01/25 18:40 36.6 C 105 H 18 123/85 97 O2 Del Method 02/02/25 02:56 02/02/25 02:00 Room Air 02/02/25 00:00 Room Air 02/01/25 23:03 02/01/25 22:00 Room Air 02/01/25 20:16 Room Air 02/01/25 19:00 02/01/25 18:40 Room Air Laboratory Results Reviewed CBC, CMP, Pro-Narayan, bio fire, UA, mag Diagnostic Findings reviewed renal ultrasound Medications Administered ED3L NSS bolus, 1L LR bolus, Lidoderm patch, 6 Mg IV morphine, Phenergan 12.5 Mg IV x 3, Benadryl 12.5 Mg IV, Rocephin 2G IV ECG Additional Comments: ordered Code Status & VTE Plan VTE Prophylaxis Plan VTE Prophylaxis will be ordered: Yes Supervising Physician Co-Signing Physician Notes Attending addendum: I have supervised the KIMBERLEY's activities, and agree with the H&P unless as otherwise noted. Assessment and Plan: Patient is a 24-year-old female past medical history including chronic right- sided low back pain, anxiety/depression. She presents to the emergency department 3.5-day female who tested positive for enterovirus/rhinovirus emergency department. She presents with intractable nausea, vomiting, diarrhea bilateral flank pain approximately 1 week duration, not significantly relieved by multiple medications given in the emergency department. She is referred for evaluation for continue IV fluids control. Intractable nausea/vomiting/diarrhea-patient positive for rhinovirus/enterovirus No signs of hyperemesis gravidarum Status post 3 L of saline bolus in ED and 1 L LR bolus from the ED Continue IV fluids with LR at 80 mL/h x 1 additional liter Phenergan 12.5 mg IV every 6 hours as needed Follow urine cultures and stool cultures Pantoprazole 40 mg IV daily Voiding any further narcotics in this patient Bilateral flank/back pain- Patient with chronic back pain issues Would avoid additional narcotics with at this point History tract infections with E. coli resistant to ampicillin, and history of multiple contaminated samples Kidney ultrasound negative for appendicitis or abscess Given ceftriaxone 2 g IV from the ED, which will cover potential pathogens for 24 hours Follow urine culture sensitivity Continue lidocaine patch Add heating pad/K-pad Second trimester - Consult CUTTING AND CREASING PRESS OPERATOR to follow while in hospital PG Care Time/CCT Total # of Minutes Spent Total Time Spent with Patient: Total time spent is greater than 50% in coordination of care (as documented) at patient's floor/unit and/or counseling patient: Coding Level of Care Code 30512 INT INP/OBS CARE 3/75MIN Diagnoses Intractable vomiting with nausea R11.2 Acute viral syndrome B34.9 Acute diarrhea R19.7 Back pain M54.9 Z34.90
--- NOTE | 2025-02-02 06:11 | Electrocardiogram Report ---
Test Reason : Blood Pressure : */* mmHG Vent. Rate : 64 BPM Atrial Rate : 64 BPM P-R Int : 164 ms QRS Dur : 76 ms QT Int : 404 ms P-R-T Axes : 25 36 21 degrees QTcB Int : 416 ms Normal sinus rhythm Normal ECG When compared with ECG of 18-Jan-2025 11:49, Vent. rate has decreased by 34 bpm Confirmed by Marcus Roberts ([id number]) on 02/02/2025 6:10:46 AM Referred By: Christina Vidales Confirmed By: Marcus Roberts
[2025-02-02] MEDS: LACTATED RINGER'S 1,000 ML IV SCH (06:28)
[2025-02-02] MEDS: PANTOprazole 40 MG/10 ML SYR IV SCH (09:15)
[2025-02-02] MEDS: ACETAMINOPHEN 1,000 MG/100 ML VIAL IV PRN (09:16)
[2025-02-02 09:49] LABS: Bilirubin Direct 0.1 mg/dl (0-0.2); Bilirubin,Total 0.4 mg/dl (0.2-1.0); Total Protein 5.2 gm/dl (6.0-8.3)
[2025-02-02] MEDS ORDERED: ONDANSETRON INJ 2 MG/ML 2 ML VIAL IV PRN (10:02)
[2025-02-02] MEDS: PROMETHAZINE 12.5 MG/50.5 ML BAG IV PRN (10:17)
[2025-02-02] MEDS: PRENATAL VITAMIN 1 TAB PO SCH (10:30)
--- NOTE | 2025-02-02 10:41 | Consultation ---
Date of Consultation February 02, 2025 Assessment & Plan (1) : (2) Intractable vomiting with nausea: Zofran 4 mg IV every 4 hours as needed. IV multivitamins and IV vitamin B6. Plan Observe any improvement after change in medications History of Present Illness Requesting Physician: Fabrice Nguyen Reason for Consultation: Intrauterine 13 weeks 3 days gestation. Persistent nausea and vomiting. Failed outpatient therapy. Attending Physician: Roni Mattson History of Present Illness Patient is a 25-year-old 4 para 2 with 1 spontaneous AB. She is in good general health. She has had persistent nausea and vomiting since early in this . Outpatient therapy with Phenergan was used. Along with bland low- fat diet. Patient states she has been unable to retain even fluids p.o. since January 30, 2025. She was admitted through the emergency room. Initially was given rapid infusion of IV fluids. Presently on IV fluids 80 mL an hour. Also Phenergan for nausea and vomiting. Allergies Allergy/AdvReac Type Severity Reaction Status Date / Time melatonin Allergy Hives Verified 02/01/25 14:57 Home Medications Medication Instructions Recorded Confirmed Type acetaminophen 500 mg tablet 500 mg PO Q6H PRN PAIN/FEVER 06/06/24 02/02/25 Hi story promethazine 12.5 mg tablet 12.5 mg PO Q6H PRN nausea and 01/06/25 02/02/25 Rx vomiting #20 tabs vit no.133-ferrous 1 tab PO DAILY 01/18/25 02/02/25 History fumarate 28 mg-folic acid 800 mcg tablet () ferrous sulfate PO 02/01/25 02/01/25 History nitrofurantoin 100 mg PO Q12H 5 days #10 caps 02/01/25 02/02/25 Rx monohydrate/macrocrystals 100 mg capsule (Macrobid) Patient History Medical History (Updated 02/02/25 @ 04:09 by Henna James PA-C) Varicella vaccination Anxiety Acute hyponatremia GERD (gastroesophageal reflux disease) Sepsis Pyelonephritis Palpitations Depression Migraines Asthma depression Pineal gland cyst Surgical History S/P wisdom tooth extraction Hx of tonsillectomy Hx of cholecystectomy Hx of appendectomy Family History Grandfather (Paternal) Cancer Father Heart disease Diabetes Myocardial infarction Grandmother (Paternal) Lung disease Aunt Kidney disease Mother Diabetes Denies family history of Ovarian cancer Prostate cancer Breast cancer Colorectal cancer Social History (Updated 02/01/25 @ 10:58 by Lizbeth Uribe) Smoking Status: Never smoker Second Hand Exposure: No; Do You Dip or Chew Tobacco: No; Hx Alcohol Use: No Hx Substance Use: No Preferred Language: Burmese Communication Ability: Effective Transportation Engineer Required: No Beliefs That Will Affect Care: None marital status: marital status details: Sharan (27) [phone] Current Living Situation: Family Current Living Situation Comment: Lives with , 2 children, dog visits current occupational status: employed 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 Heart had regular rhythm S1 and S2 are normal. Lungs are clear to auscultation percussion. Abdomen soft and nontender. No CVA tenderness. No calf tenderness. Results & Data Vital Signs (Past 12 Hours) Vital Signs Temp Pulse Pulse Resp BP BP Pulse Ox 02/02/25 05:30 37.1 C 80 16 121/82 94 02/02/25 05:00 80 18 123/79 98 02/02/25 04:24 62 17 116/79 99 02/02/25 04:06 67 19 105/66 98 02/02/25 03:33 106 H 20 121/78 95 02/02/25 03:06 75 19 114/78 97 02/02/25 02:56 76 02/02/25 02:00 74 17 114/78 98 02/02/25 00:00 37 C 72 18 120/73 95 02/01/25 23:03 65 O2 Del Method 02/02/25 05:30 Room Air 02/02/25 05:00 02/02/25 04:24 02/02/25 04:06 02/02/25 03:33 02/02/25 03:06 02/02/25 02:56 02/02/25 02:00 Room Air 02/02/25 00:00 Room Air 02/01/25 23:03 Diagnostic Findings Liver profile CMV antibodies Medications Administered Zofran 4 mg IV every 4 hours as needed for nausea and vomiting. 100 mg of vitamin B6 pyridoxine and 1 L of IV fluids daily. 1 amp of multivitamins and 1 L of IV fluids daily.
[2025-02-02] MEDS: MULTI VITAMIN INFUSION IV SCH (11:39)
[2025-02-02] MEDS: PYRIDOXINE HCL 100 MG in SYRINGE 10 ML IV SCH (11:39)
[2025-02-02] MEDS: SODIUM CHLORIDE IV SCH (11:39)
[2025-02-02 15:46] VITALS: RESP 18
--- NOTE | 2025-02-02 18:47 | Hospitalist Progress Note ---
Date of Service February 02, 2025 Assessment & Plan (1) Intractable vomiting with nausea: (2) Acute viral syndrome: (3) Acute diarrhea: (4) Back pain: (5) : (6) Enterovirus infection: Plan Patient is a 24-year-old female with a past medical history of chronic right- sided low back pain, anxiety, depression. She is 13 weeks and 5 days and tested positive for enterovirus in the ED. She has had nausea, vomiting, diarrhea, and bilateral flank pain for approximately 1 week along with inability to tolerate p.o. intake. She is being admitted for IV fluids and IV nausea control. #Intractable nausea/vomiting/diarrhea Biofire positive for rhinovirus/enterovirus Droplet isolation precautions 3L NSS bolus +1 L LR bolus in ED, will continue IV hydration with LR at 80 mL/hour x 1 bag Clear diet and advance as tolerated with nausea control Update on 02/02, patient able to keep down clear liquids, and willing to try to advancing to solids this evening IV Zofran as needed Phenergan PRN for breakthrough nausea and vomiting Given Pepcid IV in ED - no adequate studies on safety in , defer further use Pantoprazole IV daily ordered, safe in #Bilateral low back/flank pain history of chronic right sided low back pain/sciatica, patient reports this feels different History of sepsis 2/2 pyelonephritis in 05/2024, E. coli resistant to ampicillin Completed course of Keflex December 2024 for UTI, cultures grew 3 organisms, skin taz, no ID or sensitivities UA appears noninfectious on admission, likely contamination with epithelial cells - 1+ leukocyte esterase, 6-10 WBC, 3-5 epithelial cells kidney ultrasound negative for acute findings Given Rocephin x 1 in ED, will cover for 24 hours Defer further antibiotic use as likely noninfectious Follow urine cultures Urine cultures without growth on 02/02 IV Tylenol as needed Continue lidocaine patch Heating pad prn Defer further opioid use with Lidocaine patch application daily #second trimester 13 weeks and 5 days, 012 heart tones 163 on renal ultrasound heart tones QS OB consulted - routine management, has not yet established care with OB during this defer further opioid use with , received 6 Mg morphine in ED continue vitamin VTE ppx: SCDs Diet: clears, advance as tolerated Dispo: MedSurg with continuous pulse ox Possible discharge home 02/03 if symptoms improve and patient tolerates p.o. intake Admission and Anticipated Discharge Date Admission Date: February 02, 2025 Subjective Carolyne reports she is feeling better than she was last night. While she vomited after breakfast, she was able to tolerate clear liquids for lunch. Her nausea is also subsided; patient reports that Phenergan has been helping her symptoms, and she was taking this at home prior to coming in, but was unable to keep it down. Prior to coming to the hospital, she reports she was unable to keep solids down for the past 2 days. She came in last night around 6 PM, and has had nausea and vomiting since up until lunchtime today. Patient does express a desire to stay until she is able to tolerate p.o. medications and solid foods. She reports that she would be willing to trial solid foods on the evening of 02/02 for dinner. Additionally, she has had intermittent bilateral flank pain and low-grade fevers. ROS: Patient endorses N/V/D, lightheadedness, LBP, bilateral flank pain, dysuria, and abdominal cramping. Patient denies recurrence of fever, chills, headache, chest pain, SOB, chest palpitations, hematemesis, burning with urination, or blood in the urine or stool. Review of Systems Review of Systems: See HPI above Physical Exam Physical Exam: General: no acute distress; non-toxic appearing; well-nourished; cooperative HEENT: normocephalic, atraumatic; no scleral icterus; PERRLA w/ EOMs intact; vision and hearing grossly intact Neck: supple; no lymphadenopathy; trachea midline Skin: warm, dry without signs of tenting; no cyanosis; no rashes, bruising, lesions, or erythema noted CV: chest wall NTP; RRR; S1/S2 normal; no murmurs/rubs/gallops; pulses intact and symmetric at radial, DP, and PT Lungs: no acute respiratory distress; symmetrical chest wall expansion; clear breath sounds across all lung mac w/o adventitious sounds; no wheezing ABD: Soft, NTP; BS present; no rebound/guarding; no distention MSK: no tics or fasciculations; no edema noted in the LEs b/l, nonerythematous Neuro: A&Ox3; normal mood and affect; fluent speech; no focal deficits; sensation grossly intact in the LEs b/l Results & Data Results & Data Vital Signs (Past 12 Hours) Vital Signs Temp Pulse Resp BP Pulse Ox O2 Del Method 02/02/25 15:45 37.1 C 76 18 112/73 98 Room Air Laboratory Results Abnormal lab results 02/01/25 02/01/25 02/02/25 Range/Units 18:59 20:03 00:24 Neut # (Auto) 6.87 H (1.40-6.50) K/uL Alkaline Phosphatase (34-104) U/L Total Protein (6.0-8.3) gm/dl Albumin (3.4-5.0) gm/dl Ur Leukocyte Esterase 1+ H (Negative) Urine WBC (Auto) 6-10 H (0-5) /hpf U Epithel Cells (Auto) 3-5 H (0-2) /hpf Entero/Rhino (PCR) DETECTED A (NotDetected) 02/02/25 Range/Units 09:05 Neut # (Auto) (1.40-6.50) K/uL Alkaline Phosphatase 24 L (34-104) U/L Total Protein 5.2 L D (6.0-8.3) gm/dl Albumin 3.0 L (3.4-5.0) gm/dl Ur Leukocyte Esterase (Negative) Urine WBC (Auto) (0-5) /hpf U Epithel Cells (Auto) (0-2) /hpf Entero/Rhino (PCR) (NotDetected) Diagnostic Findings Renal Ultrasound 02/01/25 19:08 Exam(s): US RENAL EXAM: US Retroperitoneal Limited, Renal CLINICAL HISTORY: Reason for exam: back pain, recent UTI, . TECHNIQUE: Real-time limited ultrasound of the retroperitoneum with image documentation. COMPARISON: 06/06/2024 FINDINGS: Right kidney: Measures 11.7 cm. No solid mass. No hydronephrosis. Left kidney: Measures 11.4 cm. No solid mass. No hydronephrosis. Bladder: Bladder is decompressed. Other findings: heart rate 163 bpm. IMPRESSION: No acute abnormality. Electronically signed by: Spike Maurice MD 02/01/25 21:23 PM PG Care Time/CCT Total # of Minutes Spent Total Time Spent with Patient: Total time spent is greater than 50% in coordination of care (as documented) at patient's floor/unit and/or counseling patient: Coding [place] [address] SUB INP/OBS CARE 2/35MIN Patient Type Established History Comprehensive Exam Comprehensive Medical Decision Making Moderate Complexity Diagnoses Intractable vomiting with nausea R11.2 Acute viral syndrome B34.9 Acute diarrhea R19.7 Back pain M54.9 Z34.90 Enterovirus infection B34.1
[2025-02-02 20:31] VITALS: TEMP 98.4
[2025-02-03 07:45] LABS: Basophils # (auto) 0.02 K/uL (0.00-0.20); Basophils % (auto) 0.3 %; Eosinophils # (auto) 0.15 K/uL (0.00-0.50); Eosinophils % (auto) 2.1 %; Hematocrit (blood only) 35.1 % (37.0-47.0); Hemoglobin 11.8 g/dl (12.0-16.0); Immature Granulocytes # (auto) 0.03 K/uL (0.01-0.20); Immature Granulocytes % (auto) 0.4 %; Lymphocytes # (auto) 1.24 K/uL (1.20-3.40); Lymphocytes % (auto) 17.4 %; Mean Corpuscular Hemoglobin 27.6 pg (25.0-34.0); Mean Corpuscular Hgb Conc 33.6 g/dL (32.0-36.0); Mean Corpuscular Volume 82.2 fL (80.0-100.0); Mean Platelet Volume 10.8 fL (9.4-12.4); Monocytes # (auto) 0.32 K/uL (0.11-0.59); Monocytes % (auto) 4.5 %; Neutrophils # (auto) 5.37 K/uL (1.40-6.50); Neutrophils % (auto) 75.3 %; Platelet Count 228 K/uL (130-400); RDW Coefficient of Variation 13.2 % (11.5-14.5); RDW Standard Deviation 39.4 fL (36.4-46.3); Red Blood Count 4.27 M/uL (4.20-5.40); White Blood Count 7.13 K/ul (4.8-10.8)
[2025-02-03] MEDS: LIDOCAINE 5% 1 PATCH TD SCH (08:04)
[2025-02-03 08:05] LABS: Albumin Globulin Ratio 1.3 (0.9-2); Albumin Level 3.3 gm/dl (3.4-5.0); BUN Creatinine Ratio 10.6 (10-20); Bilirubin,Total 0.4 mg/dl (0.2-1.0); Calcium 8.5 mg/dl (8.6-10.3); Creatinine Clr Calc Pharmacy 221.4 ml/min; Globulin 2.5 gm/dl (2.5-4.0); Magnesium 1.7 mg/dl (1.7-2.4); Potassium 3.7 mmol/L (3.5-5.1); Total Protein 5.8 gm/dl (6.0-8.3)
[2025-02-03 08:54] VITALS: BP 111/72; PULSE 97; O2SAT 98
--- NOTE | 2025-02-03 10:25 | Discharge Summary ---
Discharge Summary Date of Service February 03, 2025 Principal Dx & Hospital Course #1 = Principal Diagnosis (1) Intractable vomiting with nausea: (2) Acute viral syndrome: (3) Acute diarrhea: (4) Back pain: (5) : Plan #Intractable nausea/vomiting/diarrhea Patient is a 24-year-old female with a past medical history of chronic right- sided low back pain, anxiety, depression. She is 13 weeks and 5 days and tested positive for enterovirus in the ED. She has had nausea, vomiting, diarrhea, and inability to tolerate p.o. intake. She was admitted for IV fluids and IV nausea control. Symptoms much improved after IVFs, IV Phenergan and IV multivitamins. Tolerating PO intake and safe for discharge home. Recommend continue Vit B6 PO at discharge. Focus on hydration. Routine OB follow up, has appointment 02/04. #bilateral low back/flank pain history of chronic right sided low back pain/sciatica, patient reports this feels different History of sepsis 2/2 pyelonephritis in 05/2024, Recent course of Keflex 12/2024. UA on admission appears non infectious. Kidney US negative for acute findings. First urine culture pinpoint reincubating. Received one dose of Keflex, but further antibiotics deferred. UC pending at discharge, but suspect non-infectious. #second trimester 012, RAMOS 08/04/25 Routine OB follow up Dispo: discharge to home today Notes For Next Care Provider UC pending, but suspect non infectious Admission HPI Per Admitting Provider Patient is a 24-year-old female with a past medical history of chronic right- sided low back pain, anxiety, depression. She is 13 weeks and 5 days and tested positive for enterovirus in the ED. She has had nausea, vomiting, diarrhea, and bilateral flank pain for approximately 1 week along with inability to tolerate p.o. intake. She is being admitted for IV fluids and IV nausea control. Patient seen at bedside. She stated she has a history of sepsis secondary to pyelonephritis in May 2024 and this back pain feels similar. She stated that this back pain feels different than her chronic right sided back pain which is thought to be due to sciatica. She stated she underwent a course of antibiotics for approximately a week that were prescribed at the end of December (noted Keflex prescribed 01/18/2025 in ED, cultures grew 3 organisms, no ID or sensitivities, probable skin taz). Patient called her DEMO SPECIALIST today who referred her to her PCP for her bilateral flank pain. Her PCP prescribed Macrobid however patient came into the ER for IV fluids and IV antiemetics. Patient stated her pain and nausea are relieved with IV Phenergan and IV morphine. She stated she has been vomiting approximately 4-5 times a day. The diarrhea started 3 days ago along with dizziness, lightheadedness, and generalized weakness thought to be secondary to dehydration. She also noted a temperature of 100.2 F yesterday and has been taking Tylenol ever since. She denies any chest pain or shortness of breath. She denies any nicotine use. 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 She denies any sick contacts however could have contacts from work that are unknown. Discharge Exam General: NAD, VS as above, lying in bed Resp: normal respiratory effort, lungs clear to auscultation CV: RRR, no murmur, Abd: normal bowel sounds, non tender, no hepatosplenomegaly Extremities: Moves all extremities Neuro: A&O x3, Skin: intact, no lesions noted Discharge Plan Discharge Items Patient Disposition: Home - Self-Care Reason For Visit: INTRACTABLE VOMITING, DIARRHEA, Discharge Diagnosis: Rhinovirus nausea and vomiting of Activity: Resume your previous activity Weightbearing: Full weightbearing Non-emergency contact: Primary Care Provider and Electronics Parts Sales Representative Call non-emergency contact if: you have any medication questions, your symptoms worsen, your pain is not controlled, your pain is worsening and your temperature is above 101 Follow-up/Referrals: Christina Vidales CRNP [Primary Care Provider] - (follow up within one week ) Diet: Regular Addtl Attending Provider Instructions: Ms. Voss, You were hospitalized after having worsening abdominal pain, nausea and vomiting. This was likely multifactorial from and rhinovirus. Thankfully, you have improved with IV fluids, nausea medications and IV vitamins. Recommendation: -Continue multivitamin/ vitamin as able - Phenergan or zofran as needed - Do NOT take these at the same time. Recommend zofran only if unable to tolerate phenergran - Utilize Vitamin B6 and unisom over the counter for nausea. - vitamin B6 25mg 3-4 times a day, or 100mg once daily - Unisom (doxyalamine) 12.5-25mg once to twice a day for nausea. This can make you drowsy so recommend starting at night and increasing to twice a day if needed - Hydrate as much as possible. Snacks high in protein will help decrease nausea - continue over the counter lidocaine patches if you find these helpful Follow up with OB as planned. Call OB with any vaginal bleeding. Activity: You can do normal everyday activities as your body allows. Take rest breaks if you feel tired. Do not overexert. Stop activity if you have pain, shortness of breath or feel dizzy. Follow-up appointments: Make an appointment with your primary care physician within one week of discharge. A copy of this summary will be sent to them. Every time you see your primary care physician, or any other doctor, bring your medication list, and a list of questions. CONTACT YOUR PRIMARY CARE PROVIDER if you experience any of the following: Shortness of breath or difficulty breathing Fevers or chills Feeling tired with normal activity or experiencing dizziness or fainting Difficulty following your treatment plan, or difficulty taking medications CALL 911 OR GO TO THE EMERGENCY DEPARTMENT if you experience any of the following: Severe abdominal pain or nausea/vomiting Severe chest pain, or chest pain that radiates (moves) to your jaw or arm Sudden, severe shortness of breath or difficulty breathing Thank you for allowing us to participate in your care. Pending Studies at Discharge: Yes (urine culture ) Stand-Alone Forms: My [facility], Work/School Release, Smoking Cessation Medications and DC Order Prescriptions: New ondansetron 4 mg tablet,disintegrating 4 mg PO Q6H PRN (Reason: nausea and vomiting) Qty: 10 0RF Continued ferrous sulfate PO acetaminophen 500 mg Tablet 500 mg PO Q6H PRN (Reason: PAIN/FEVER) promethazine 12.5 mg tablet 12.5 mg PO Q6H PRN (Reason: nausea and vomiting) 3 Days Qty: 10 0RF 28-800 mg-mcg Tablet 1 tab PO DAILY Discontinued nitrofurantoin monohyd/m-cryst [Macrobid] 100 mg capsule 100 mg PO Q12H 5 Days Qty: 10 0RF Rx Instructions: must administer with a meal/food Discharge Orders: Discharge Order (Routine); Ordered 02/03/25 Ordered By: Liza A Malackowski Admission Data Admit Date/Time: 02/02/25 03:36 Attending Provider: Roni Mattson Admit Provider: Fabrice Nguyen Primary Care Provider: Christina Vidales Other Providers: Fabrice Nguyen; Mode Deluna Hospital Stay Data Consultations 02/02/25 02:46 ED Decision to Admit Stat 02/02/25 05:51 Consult Obstetrics Routine Diagnostic Imagining Performed Renal Ultrasound 02/01/25 19:08 Exam(s): US RENAL EXAM: US Retroperitoneal Limited, Renal CLINICAL HISTORY: Reason for exam: back pain, recent UTI, . TECHNIQUE: Real-time limited ultrasound of the retroperitoneum with image documentation. COMPARISON: 06/06/2024 FINDINGS: Right kidney: Measures 11.7 cm. No solid mass. No hydronephrosis. Left kidney: Measures 11.4 cm. No solid mass. No hydronephrosis. Bladder: Bladder is decompressed. Other findings: heart rate 163 bpm. IMPRESSION: No acute abnormality. Electronically signed by: Spike Maurice MD 02/01/25 21:23 PM Pending Results Patient Have Any Pending Studies at Discharge: Yes (urine culture ) Discharge Instructions Given to Patient (Per Discharging Provider) Ms. Voss, Duane were hospitalized after having worsening abdominal pain, nausea and vomiting. This was likely multifactorial from and rhinovirus. Thankfully, you have improved with IV fluids, nausea medications and IV vitamins. Recommendation: -Continue multivitamin/ vitamin as able - Phenergan or zofran as needed - Do NOT take these at the same time. Recommend zofran only if unable to tolerate phenergran - Utilize Vitamin B6 and unisom over the counter for nausea. - vitamin B6 25mg 3-4 times a day, or 100mg once daily - Unisom (doxyalamine) 12.5-25mg once to twice a day for nausea. This can make you drowsy so recommend starting at night and increasing to twice a day if needed - Hydrate as much as possible. Snacks high in protein will help decrease nausea - continue over the counter lidocaine patches if you find these helpful Follow up with OB as planned. Call OB with any vaginal bleeding. Activity: You can do normal everyday activities as your body allows. Take rest breaks if you feel tired. Do not overexert. Stop activity if you have pain, shortness of breath or feel dizzy. Follow-up appointments: Make an appointment with your primary care physician within one week of discharge. A copy of this summary will be sent to them. Every time you see your primary care physician, or any other doctor, bring your medication list, and a list of questions. CONTACT YOUR PRIMARY CARE PROVIDER if you experience any of the following: Shortness of breath or difficulty breathing Fevers or chills Feeling tired with normal activity or experiencing dizziness or fainting Difficulty following your treatment plan, or difficulty taking medications CALL 911 OR GO TO THE EMERGENCY DEPARTMENT if you experience any of the following: Severe abdominal pain or nausea/vomiting Severe chest pain, or chest pain that radiates (moves) to your jaw or arm Sudden, severe shortness of breath or difficulty breathing Thank you for allowing us to participate in your care. Total Time Total Time Spent Total Time Spent (In Minutes): Time spent day of discharge 38 minutes including direct patient care, medication reconciliation, documentation, review of labs and images, and coordination of care. Coding Level of Care Code 97516 INP/OBS DISCH >30 MIN Diagnoses Intractable vomiting with nausea R11.2 Acute viral syndrome B34.9 Acute diarrhea R19.7 Back pain M54.9 Z34.90
[2025-02-05 17:56] LABS: CMV IgG Antibody <0.60 U/mL; CMV IgM Antibody <30.00 AU/mL
== END 2025-02-03 11:59 | disposition home or self-care (01) ==
LOC: SUATTDRO → 3E 18:38 → ED 18:38 → SUATTDRO 02-02 03:36 → 3E 02-02 05:11

== ENCOUNTER 2025-07-29 08:14 | Inpatient (IN) ==
[2025-07-29] MEDS ORDERED: LIDOCAINE 1% LOCAL 20 ML VIAL INFIL PRN (08:20)
[2025-07-29] MEDS ORDERED: OXYTOCIN 30 UNITS/NSS 30 UNITS/500 ML BAG IV PRN ×2 (08:20→19:13)
[2025-07-29 09:14] LABS: Hematocrit (blood only) 36.8 % (37.0-47.0); Hemoglobin 12.0 g/dl (12.0-16.0); Mean Corpuscular Hemoglobin 26.3 pg (25.0-34.0); Mean Corpuscular Volume 80.5 fL (80.0-100.0); Platelet Count 227 K/uL (130-400); RDW Standard Deviation 42.8 fL (36.4-46.3); Red Blood Count 4.57 M/uL (4.20-5.40); White Blood Count 10.63 K/ul (4.8-10.8)
[2025-07-29] MEDS ORDERED: CALCIUM CARBONATE 500 MG CHEWABLE TAB PO PRN (09:37)
[2025-07-29] MEDS: ACETAMINOPHEN 500 MG TAB PO PRN (09:50)
[2025-07-29] MEDS: LACTATED RINGER'S 1,000 ML IV PRN (10:23)
[2025-07-29] MEDS ORDERED: NALBUPHINE HCL INJ 10 MG/ML AMP IV PRN (10:40)
[2025-07-29] MEDS ORDERED: NALOXONE HCL 0.4 MG/1 ML VIAL/CARP IV PRN (10:40)
[2025-07-29] MEDS ORDERED: NALOXONE HCL 1 MG in SODIUM CHLORIDE 0.9% 1,000 ML IV PRN (10:40)
[2025-07-29] MEDS ORDERED: fentANYL 2 MCG/ML BUPIVacaine 0.125%-NSS 100ML BAG EPI PRN (10:40)
[2025-07-29] MEDS ORDERED: BUPIVACAINE 0.25% PF 30 ML VIAL EPI PRN (10:40)
[2025-07-29] MEDS ORDERED: LIDOCAINE 2% MPF LOCAL 5 ML VIAL EPI PRN (10:40)
[2025-07-29] MEDS ORDERED: SODIUM CHLORIDE 0.9% PF INJ 10 ML VIAL EPI PRN (10:40)
[2025-07-29] MEDS ORDERED: ROPIVACAINE 0.5% PF 5 MG/ML 20 ML VIAL EPI PRN (10:40)
--- NOTE | 2025-07-29 10:42 | Anesthesiology Consultation ---
Date of Service July 29, 2025 Assessment & Plan Chart Review Chart Review: Patient NOT seen in Pre Admission Testing and Acceptable Risk for Labor Epidural Consults Requested none ASA ASA3 Proposed Anesthesia Anesthesia Type: Labor Epidural Risk / Benefits Reviewed With: PT / POA / Parent / Guardian, Accepts Plan and Informed Consent Obtained History Height/Weight Height: 5 ft 5 in Weight: 110.677 kg Allergies Allergy/AdvReac Type Severity Reaction Status Date / Time melatonin Allergy Intermediate Hives Verified 07/29/25 08:59 Medications Home Medications Medication Instructions Recorded Confirmed Last Taken vits no.133-ferrous 1 tab PO DAILY 01/18/25 07/29/25 07/24/25 fumarate 28 mg-folic acid 800 mcg tablet () ferrous sulfate 325 mg (65 mg 325 mg PO DAILY 07/25/25 07/29/25 07/24/25 iron) tablet (iron) Active Medications Generic Name Dose Route Start Last Admin Trade Name Freq PRN Reason Stop Dose Admin Acetaminophen 1,000 mg 07/29/25 09:34 07/29/25 09:50 Acetaminophen 500 Mg Tab PO 08/28/25 09:33 1,000 mg Q8H PRN Administration Patient Admitted Lactated Ringer's 1,000 mls @ 125 mls/hr 07/29/25 08:20 07/29/25 10:23 Lr IV 07/31/25 08:19 999 mls/hr .Q8H PRN Administration L&D Protocol Protocol NPO Date Last Intake of Fluids: 07/29/25 Time Last Intake of Fluids: 10:00 Date Last Intake of Solids: 07/28/25 Time Last Intake of Solids: 20:00 Past Medical History Medical History Enterovirus infection Varicella vaccination Anxiety Acute hyponatremia GERD (gastroesophageal reflux disease) Sepsis Pyelonephritis Palpitations Depression Migraines Asthma depression Pineal gland cyst Exercise / Class Metabolic Activity 1 > 8 Run/Swim/Ski/Tennis Past Family History Family History Grandfather (Paternal) Cancer Father Heart disease Diabetes Myocardial infarction Grandmother (Paternal) Lung disease Aunt Kidney disease Mother Diabetes Denies family history of Ovarian cancer Prostate cancer Breast cancer Colorectal cancer Past Surgical History Surgical History S/P wisdom tooth extraction Hx of tonsillectomy Hx of cholecystectomy Hx of appendectomy Past Anesthesia History No Hx of Anesthesia Complications and No Family Hx of Anesthesia Complications History of PONV No Hx of PONV and No Hx of Motion Sickness Social History Smoking Status: Never smoker Do You Dip or Chew Tobacco: No Hx Alcohol Use: No Hx Substance Use: No substance use type: does not use Review of Systems ROS Unobtainable: All systems reviewed & are unremarkable except as noted in HPI & below Physical Exam Vital Signs Last Vital Signs Temp 36.7 C 07/29/25 09:51 Pulse 90 07/29/25 08:24 Resp 20 07/29/25 09:51 BP 117/64 07/29/25 08:24 ENMT Mouth: no TMJ abnormality Thyromental Distance: > or= 3.5 Finger Breadths Mallampati Class: II Neck normal visual inspection and trachea midline; neck extension not limited Respiratory normal respiratory effort Auscultation: lungs clear to auscultation bilaterally Cardiovascular Rate/Rhythm: regular rate and regular rhythm Heart Sounds: no murmur Musculoskeletal Spine: normal cervical ROM Extremities: full ROM of extremities Neurologic moves all extremities Psychiatric Orientation: alert and oriented x 3 Testing Laboratory Results 07/29/25 08:36 Blood Type O Positive 07/29/25 08:36 Antibody Screen NEGATIVE 07/29/25 08:36
[2025-07-29] MEDS: fentANYL 2 MCG/ML BUPIVacaine 0.125%-NSS 100ML BAG ONE (11:03)
[2025-07-29] MEDS: LIDOCAINE 2%/EPINEPHRINE 1:200,000 20 ML PF ONE (11:06)
[2025-07-29] MEDS: BUPIVACAINE 0.25% PF 30 ML VIAL ONE (11:07)
[2025-07-29] MEDS: SODIUM CHLORIDE 0.9% PF INJ 10 ML VIAL ONE (11:08)
[2025-07-29] MEDS: LIDOCAINE 2%/EPINEPHRINE 1:200,000 20 ML PF EPI STA (11:09)
[2025-07-29] MEDS: BUPIVACAINE 0.25% PF 30 ML VIAL EPI STA (11:09)
[2025-07-29] MEDS: SODIUM CHLORIDE 0.9% PF INJ 10 ML VIAL EPI STA (11:09)
--- NOTE | 2025-07-29 11:34 | History & Physical Report ---
Date of Service July 29, 2025 Assessment & Plan (1) Encounter for induction of labor: Plan Admit pt; iv, labs, add pitocin as needed; FHR category Admit pt; iv, labs, add Pitocin as needed; FHR category II History of Present Illness Primary Care Provider: SUSY Arciniega Contractions: Mild Painful: Negative Vaginal Bleeding: Negative Leaky Fluid: Present Movement: Present Pt is a 25F yo Female, , 39 wks 1 day, arrives to Labor & Delivery for induction of labor. Pt appears AOx3 and is accompanied by her to the unit. Pt was awakened by her water breaking at 6:30 am Labs: Rhesus Positive, GBS Negative, Rubella Immune, Hep B - Non Immune Hx of STDs: Negative Allergies Allergy/AdvReac Type Severity Reaction Status Date / Time melatonin Allergy Intermediate Hives Verified 07/29/25 08:59 Home Medications Medication Instructions Recorded Confirmed Type vits no.133-ferrous 1 tab PO DAILY 01/18/25 07/29/25 History fumarate 28 mg-folic acid 800 mcg tablet () ferrous sulfate 325 mg (65 mg 325 mg PO DAILY 07/25/25 07/29/25 History iron) tablet (iron) Patient History Medical History Enterovirus infection Varicella vaccination Anxiety Acute hyponatremia GERD (gastroesophageal reflux disease) Sepsis Pyelonephritis Palpitations Depression Migraines Asthma depression Pineal gland cyst Surgical History S/P wisdom tooth extraction Hx of tonsillectomy Hx of cholecystectomy Hx of appendectomy Family History Grandfather (Paternal) Cancer Father Heart disease Diabetes Myocardial infarction Grandmother (Paternal) Lung disease Aunt Kidney disease Mother Diabetes Denies family history of Ovarian cancer Prostate cancer Breast cancer Colorectal cancer Social History (Updated 07/25/25 @ 11:31 by Jaymie Lennon RN) Smoking Status: Never smoker Second Hand Exposure: No; Do You Dip or Chew Tobacco: No; Hx Alcohol Use: No Hx Substance Use: No Preferred Language: Azeri Communication Ability: Effective Electrical Worker Required: No Beliefs That Will Affect Care: None marital status: marital status details: Sharan (27) [phone] Current Living Situation: Family Current Living Situation Comment: Lives with , 2 children, dog visits current occupational status: employed current occupation: DURABLE MEDICAL EQUIPMENT TECHNICIAN [employer] How many Children do You have: 2 Other Information That Helps Us Care for You: No Feels Safe at Home: Yes Safety Concerns: Feels Safe At This Time Childhood Exposure to Second-Hand Smoke: Yes Diet: regular caffeine: Yes Dental Care, Regularly: No Physical Activity Frequency: Daily Seatbelt Use: always Sunscreen Use: Yes Do you think of yourself as: straight/heterosexual Sexual Activity: has been sexually active within the last 12 months Gender Identity: Female Assistive Devices: None Review of Systems All systems reviewed & are unremarkable except as noted in HPI & below i. Denies fever, chills, sweats ii. Denies SOB, difficulty breathing, chest pain, palpitations, chest pressure iii. Denies breast pain. iv. Denies Dysuria v. Denies headache or changes in vision. Physical Exam Constitutional: WD/WN, vitals as above Eyes: PERRL, conjunctivae normal, anicteric sclerae ENMT: external ear and nose normal, oropharynx normal Neck: trachea midline, no thyromegaly Respiratory: normal respiratory effort, lungs clear to auscultation Cardiovascular: RRR, no murmur, no edema Gastrointestinal (Abdomen): normal bowel sounds, soft, nontender, no hepatosplenomegaly Musculoskeletal: no cyanosis or clubbing, extremities motor strength 5/5 Skin: no rashes, warm and dry Psychiatric: A+Ox3, euthymic affect Genitourinary: As per Dr. Zavala's Attestation Results & Data Vital Signs (Past 12 Hours) Vital Signs Temp Pulse Resp BP Pulse Ox 07/29/25 11:24 77 96/55 L 07/29/25 11:23 76 98 07/29/25 11:18 96 H 97 07/29/25 11:17 90 89/51 L 07/29/25 11:15 85 101/50 L 07/29/25 11:13 94 H 99 07/29/25 11:08 103 H 98 07/29/25 11:07 105 H 101/57 L 07/29/25 11:05 100 H 96/54 L 07/29/25 11:03 99 07/29/25 11:03 90 07/29/25 11:03 85 101/59 L 07/29/25 11:01 90 103/53 L 07/29/25 10:58 87 99 07/29/25 10:55 93 H 87 L 07/29/25 10:53 89 100 07/29/25 09:51 20 07/29/25 09:51 36.7 C 20 07/29/25 08:24 90 117/64 07/29/25 08:20 36.8 C 20 Resident Activity Tracking Resident Involvement: Resident Care Provided Care Provided: OB Delivery
[2025-07-29] MEDS: OXYTOCIN 30 UNITS/NSS 30 UNITS/500 ML BAG IV PRN (13:34)
[2025-07-29] MEDS: ONDANSETRON INJ 2 MG/ML 2 ML VIAL ONE (15:19)
[2025-07-29] MEDS ORDERED: BENZOCAINE 20% SPRY 85 APPLN/85 GM CAN EXT PRN (19:13)
[2025-07-29] MEDS ORDERED: HYDROCORTISONE ACETATE 25 MG SUPP PR PRN (19:13)
--- NOTE | 2025-07-29 19:14 | Delivery Summary ---
Vaginal Delivery Summary Date of Service July 29, 2025 Vaginal Delivery Summary and 1st Degree LAC Patient progressed to 10 cm dilated, 100% effaced +1 station and posterior intact perineum with epidural anesthesia and delivered a viable . Head delivered without difficulty quickly followed by shoulders and body. A 1 minute delayed cord clamping was initiated after which the cord was double clamped and cut. remained on maternal abdomen and cord blood obtained. Tension turned delivery of placenta was delivered intact with three-vessel cord with gentle cord traction. Inspection of perineum vagina and cervix there was noted to be a first-degree perineal laceration which was pared with 4-0 Vicryl with continuous running stitch. Needle sponge and instrument counts were correct at completion of the case. Both mother and stable in the immediate postdelivery timeframe. No complications noted and blood loss for QBL [facility] Vaginal Delivery Charge Delivery Type Details: and 1st Degree LAC
--- NOTE | 2025-07-29 19:35 | Anesthesia Procedure Note ---
Date of Service July 29, 2025 Anesthesia Post Epidural Note Vital Signs Vital Signs: Temp Pulse Resp BP Pulse Ox 37.0 C 104 H 18 100/49 L 98 07/29/25 17:59 07/29/25 19:24 07/29/25 17:59 07/29/25 19:24 07/29/25 18:58 Notes Mental Status: alert / awake / arousable and participated in evaluation Nausea / Vomiting: adequately controlled Pain: adequately controlled Airway Patency, RR, SpO2: stable & adequate BP & HR: stable & adequate Hydration State: stable & adequate Neuraxial Anesthesia: was administered and sensory block is resolving Anesthetic Complications: no major complications apparent Epidural: Removed without complications and With tip intact
[2025-07-29] MEDS: DIPHTHER/TETAN/PERTUS Vaccine (Tdap, Adol/Adult) 0.5mL IM ONE (19:42)
[2025-07-29] MEDS: DOCUSATE SODIUM 100 MG CAP PO SCH (22:45)
[2025-07-30] MEDS: IBUPROFEN 600 MG TAB PO PRN (00:18)
[2025-07-30] MEDS: diphenhydrAMINE 50 MG/ML VIAL IV PRN (01:19)
--- NOTE | 2025-07-30 06:30 | Obstetrical Progress Note ---
Date of Service <Shabana Decker MD - Last Filed: 07/30/25 06:33> July 30, 2025 Assessment & Plan <Shabana Decker MD - Last Filed: 07/30/25 06:33> (1) care following vaginal delivery: Plan Stable routine care. Breast feeding. Rhesus Positive. Rubella Immune. Hepatitis B - Non Immune <Flex Zavala MD - Last Filed: 07/30/25 07:38> (1) care following vaginal delivery: Subjective <Shabana Decker MD - Last Filed: 07/30/25 06:33> Ambulation: ambulating normally Voiding: no voiding problems Passing Gas:: Yes Diet Tolerance:: regular diet Lochia:: Small Feeding Type:: breast feeding Current Pain Level(1-10): 0 Pt is a 25 yo Female, G4, P2, at 39 wks 1 dys. She is post op 1 day after induced labor and delivery. Pt is resting comfortably in the AM. Pt further denies any symptoms of SOB, Chest Pain, NVD, and /or LE Edema or pain Review of Systems All systems reviewed & are unremarkable except as noted in HPI & below i. Denies fever, chills, sweats ii. Denies SOB, difficulty breathing, chest pain, palpitations, chest pressure iii. Denies breast pain. iv. Denies Dysuria v. Denies headache or changes in vision. Physical Exam <Shabana Decker MD - Last Filed: 07/30/25 06:33> Constitutional WD/WN, vitals as above Respiratory normal respiratory effort, lungs clear to auscultation Cardiovascular RRR, no murmur, no edema Gastrointestinal (Abdomen) normal bowel sounds, soft, nontender, no hepatosplenomegaly Psychiatric A+Ox3, euthymic affect Genitourinary As per Dr. Zavala's attestation Results & Data <Shabana Decker MD - Last Filed: 07/30/25 06:33> Vital Signs (Past 12 Hours) Vital Signs Temp Pulse Pulse Resp BP BP Pulse Ox 07/30/25 03:30 37.1 C 78 18 101/68 96 07/30/25 00:15 37.1 C 84 20 121/89 96 07/29/25 22:30 36.8 C 88 18 107/73 97 07/29/25 21:21 79 97/52 L 07/29/25 20:51 96 H 100/58 L 07/29/25 20:09 81 94/55 L 07/29/25 19:54 87 99/51 L 07/29/25 19:39 90 102/51 L 07/29/25 19:30 36.7 C 18 07/29/25 19:30 18 07/29/25 19:30 36.7 C 18 07/29/25 19:24 104 H 100/49 L 07/29/25 19:10 95 H 98/55 L 07/29/25 19:07 101 H 117/58 L 07/29/25 18:58 105 H 98 07/29/25 18:53 91 H 98 07/29/25 18:48 108 H 98 07/29/25 18:43 111 H 99 07/29/25 18:40 88 100/58 L 07/29/25 18:38 90 97 07/29/25 18:33 91 H 96 07/29/25 18:28 85 96 O2 Del Method 07/30/25 03:30 Room Air 07/30/25 00:15 Room Air 07/29/25 22:30 Room Air 07/29/25 21:21 07/29/25 20:51 07/29/25 20:09 07/29/25 19:54 07/29/25 19:39 07/29/25 19:30 07/29/25 19:30 07/29/25 19:30 07/29/25 19:24 07/29/25 19:10 07/29/25 19:07 07/29/25 18:58 07/29/25 18:53 07/29/25 18:48 07/29/25 18:43 07/29/25 18:40 07/29/25 18:38 07/29/25 18:33 07/29/25 18:28 Supervising Physician <Flex Zavala MD - Last Filed: 07/30/25 07:38> Co-Signing Physician Notes Patient seen with resident and agree with the above findings and plan. Patient doing well and denying any concerns. Continue routine care
[2025-07-30] MEDS: FERROUS SULFATE 325 MG TAB PO SCH (09:00)
[2025-07-30] MEDS: PRENATAL VITAMIN 1 TAB PO SCH (09:00)
[2025-07-30] MEDS: ACETAMINOPHEN 325 MG TAB PO PRN (16:46)
[2025-07-30] MEDS: diphenhydrAMINE Capsule 25 MG CAP PO ONE (21:15)
[2025-07-31 01:17] VITALS: PULSE 72
--- NOTE | 2025-07-31 07:01 | Obstetrical Progress Note ---
Date of Service <Shabana Decker MD - Last Filed: 07/31/25 08:29> July 31, 2025 Assessment & Plan <Shabana Decker MD - Last Filed: 07/31/25 08:29> (1) care following vaginal delivery: Plan -Stable routine care. Breast feeding. Rhesus Positive. Rubella Immune. Hepatitis B Non Immune. Continue to monitor. <Yu Alcala MD, FACOG - Last Filed: 07/31/25 08:32> (1) care following vaginal delivery: Subjective <Shabana Decker MD - Last Filed: 07/31/25 08:29> Ambulation: ambulating normally Voiding: no voiding problems Passing Gas:: Yes Diet Tolerance:: regular diet Lochia:: Small Feeding Type:: breast feeding Current Pain Level(1-10): 0 PP2. Review of Systems All systems reviewed & are unremarkable except as noted in HPI & below i. Denies fever, chills, sweats ii. Denies SOB, difficulty breathing, chest pain, palpitations, chest pressure iii. Denies breast pain. iv. Denies Dysuria v. Denies headache or changes in vision. Physical Exam <Shabana Decker MD - Last Filed: 07/31/25 08:29> Constitutional WD/WN, vitals as above Respiratory normal respiratory effort, lungs clear to auscultation Cardiovascular RRR, no murmur, no edema Gastrointestinal (Abdomen) normal bowel sounds, soft, nontender, no hepatosplenomegaly On palpation of fundus, uterus is firm at the umbilicus, with involution down at approximatly 1cm/day Skin no rashes, warm and dry Psychiatric A+Ox3, euthymic affect Results & Data <Shabana Decker MD - Last Filed: 07/31/25 08:29> Vital Signs (Past 12 Hours) Vital Signs Temp Pulse Resp BP Pulse Ox O2 Del Method 07/31/25 00:00 36.8 C 72 16 117/82 95 Room Air 07/30/25 19:15 36.5 C 77 16 117/77 97 Room Air Supervising Physician <Yu Alcala MD, FACOG - Last Filed: 07/31/25 08:32> Co-Signing Physician Notes Resident Physician Supervision Note: I interviewed and examined the patient. Discussed with Dr. Decker and agree with findings and plan as documented in the note. Any exceptions or clarifications are listed here: Doing well, desires d/c. INstructions given. Documented By: Yu Alcala MD, FACOG
[2025-07-31 08:35] VITALS: BP 111/74; RESP 18; TEMP 98.8; O2SAT 98
== END 2025-07-31 10:30 | disposition home or self-care (01) | DRG 807 ==
LOC: OPB 08:14 → 4S1 08:16 → 4E2 22:10